=== PATIENT | female | born 1970 | race Caucasian/White ===

== ENCOUNTER 2019-11-20 09:12 | Emergency (ER) | payer BC, OTHER, SELFPAY ==
[2019-11-20 09:22] VITALS: BP 141/94; PULSE 98; RESP 16; TEMP 37.3; O2SAT 99
--- NOTE | 2019-11-20 09:31 | ED.URI ---
HPI - URI/Sore Throat General Chief Complaint: Upper Respiratory Infection Stated Complaint: sinus pressure/headache Time Seen by Provider: 11/20/19 09:38 Source: patient and family History of Present Illness HPI Narrative: PATIENT PRESENTS WITH 10 DAY HISTORY OF SINUS PRESSURE AND CONGESTION. PATIENT HAS BEEN TAKING ZYRTEC DAILY FOR SYMPTOMS. NO FEVER NO SHORTNESS OF BREATH AND NO CHEST PAIN. NO EAR PAIN AND NO SORE THROAT. MD elicited complaint: nasal congestion and sinus pain Related Data Home Medications Medication Instructions Recorded Confirmed amlodipine 5 mg PO DAILY 11/20/19 11/20/19 aspirin [Aspirin Low Dose] 81 mg PO DAILY 11/20/19 11/20/19 atorvastatin 80 mg PO DAILY 11/20/19 11/20/19 clopidogrel 75 mg PO DAILY 11/20/19 11/20/19 losartan 100 mg PO DAILY 11/20/19 11/20/19 trimethoprim 100 mg PO HS 11/20/19 11/20/19 Allergies Allergy/AdvReac Type Severity Reaction Status Date / Time ofloxacin Allergy Unknown Swelling Unverified 11/20/19 09:31 Review of Systems Review of Systems: All systems reviewed & are unremarkable except as noted in HPI and below ENT: Reports nasal congestion Comments: MAXILLARY SINUS PRESSURE AND TENDERNESS Respiratory: Respiratory: Reports no additional respiratory complaints Gastrointestinal: Gastrointestinal: Reports no additional gastrointestinal complaints Genitourinary: Genitourinary: Reports no additional female genitourinary complaints Musculoskeletal: Musculoskeletal: Reports no additional musculoskeletal complaints PMFSH Comments REVIEWED NURSES NOTES Exam Narrative: Exam Narrative: GENERAL: Well-appearing, well-nourished, and in no acute distress. HEAD: Normocephalic, atraumatic. EYES: PERRLA and EOMI. ENT: Nares edematous, rhinorrhea no epistaxis, mild maxillary facial pressure. Mucous membranes moist.TM's normal with dull light reflex, throat red, no lesions or tonsil swelling, post nasal drainage NECK: Supple.no lymphadenopathy CHEST: Clear to auscultation. No respiratory distress. HEART: Regular rate and rhythm. No murmur heard. Normal peripheral pulses. ABDOMEN: Soft, nontender, nondistended, normal active bowel sounds. EXTREMITIES: Normal range of motion. No edema. SKIN: Warm, dry, no rash. NEURO: No focal deficits. Alert and oriented x3. [place] Coma Scale Eye Opening: Spontaneous 4 [place] Coma Scale Motor: Obeys Commands 6 Jessie Coma Scale Verbal: Oriented 5 Jessie Coma Scale Total Course Vital Signs Vital signs: Vital Signs Temperature 37.3 C 11/20/19 09:22 Pulse Rate 98 11/20/19 09:22 Respiratory Rate 16 11/20/19 09:22 Blood Pressure 141/94 H 11/20/19 09:22 Pulse Oximetry 99 11/20/19 09:22 Temperature 37.3 C 11/20/19 09:22 Pulse Rate 98 11/20/19 09:22 Respiratory Rate 16 11/20/19 09:22 Blood Pressure 141/94 H 11/20/19 09:22 Pulse Oximetry 99 11/20/19 09:22 DISCUSSED ELEVATED BLOOD PRESSURE WITH PATIENT. PATIENT AGREEABLE TO FOLLOW UP WITH PCP FOR FURTHER EVALUATION AND TREATMENT. DENIES ANY S/S HTN MDM - URI/Sore Throat Differential Diagnosis Differential diagnosis: Likely upper respiratory infection, otitis media, viral infection and bronchitis Critical Care Time Critical Care Time Critical Care Time: No Discharge Plan Discharge Clinical Impression: Sinusitis Qualifiers: Sinusitis location: frontal Patient Disposition: Home, Self-Care Condition: Stable Instructions: Antibiotic Form Additional Instructions: ZYRTEC DAILY FLONASE DAILY INCREASE FLUIDS AND REST TYLENOL OR IBUPROFEN FOR PAIN AND DISCOMFORT FOLLOW UP WITH PCP IN 2-3 DAYS IF ANY NEW OR WORSENING OF CONDITION GO TO ER IMMEDIATELY Prescriptions: New amoxicillin 875 mg tablet 875 mg PO Q12H 5 Days Qty: 10 RF: 0 No Action atorvastatin 80 mg Tablet 80 mg PO DAILY RF: 0 clopidogrel 75 mg Tablet 75 mg PO DAILY RF: 0 amlodipine 5 mg Tablet 5 mg PO DAILY RF: 0 trimethoprim 100 mg Tablet
== END 2019-11-20 10:05 | disposition home or self-care (01) ==
PROVIDERS: Emergency Provider Nurse Practitioner Family
DX: J32.1 Chronic frontal sinusitis (principal)
CPT/HCPCS: 99213; G0463

== ENCOUNTER 2019-12-06 15:33 | Emergency (ER) | payer BC, OTHER, SELFPAY ==
--- NOTE | ~2019-12-06 | XR_ITS ---
EXAMINATION: XR chest 2V DATE: 12/06/2019 16:41 INDICATION: Cough. TECHNIQUE: Frontal and lateral views of the chest were obtained. COMPARISON: Chest 2 views 08/05/2017 FINDINGS: There is mild atelectasis in left lower lung zone. No pleural effusion or pneumothorax. The heart size is normal. IMPRESSION: 1. Mild atelectasis in left lower lung zone. Reviewed, dictated and finalized at location A.
[2019-12-06 15:40] VITALS: BP 120/80; PULSE 100; RESP 24; TEMP 36.8; O2SAT 94
--- NOTE | 2019-12-06 16:51 | ED.URI ---
HPI - URI/Sore Throat General Chief Complaint: Upper Respiratory Infection Stated Complaint: Shortness of breath/chest congestion Time Seen by Provider: 12/06/19 16:46 Source: patient and RN notes reviewed Mode of arrival: ambulatory Limitations: no limitations History of Present Illness HPI Narrative: 49 year old female presents to [facility] with complaints of cough, shortness of breath,and bilateral rib pain with no fevers. Patient states that she was seen here at [facility] on the of this month and treated for sinusitis with antibiotics and completed medication. Last Monday she developed some post nasal drainage, fatigue and body aches. She states that on Monday and Monday she had nausea, vomiting and diarrhea and had fevers up to 101F with last know fevers on Monday above 100F. Patient states that she called [facility] for COVID screening and was told she didn't meet criteria since her initial symptoms were on the .Patient has decreased lung sound on auscultation, some tachypnea noted, no accessory muscle use noted with SAO2 94% on room air. Patient states bilateral rib pain from coughing and also states some right flank pain also she rates as 5/10. Patient states last travel was in October 12- [place] to [facility] and [facility] on cruise. MD elicited complaint: cough and other (shortness of breath, rib pain, last known fever November) Pertinent past history: sinusitis and other (cardiac history, autoimmune disease) Onset (ago): week(s) (initial illness on the treated for sinusitis, on flu like symptoms,present complaints 2 days duration) Consistency: progressively worsening Severity: moderate Pain scale (0-10): 5 Description of mucous: clear Able to tolerate fluids by mouth: Yes Exacerbating factors: exertion and deep breaths Relieving factors: nothing Associated symptoms: rhinorrhea, cough, shortness of breath and other (rib and right flank pain) Treatments prior to arrival: other (Zyrte, last fever reducers over weekend through ) Related Data Home Medications Medication Instructions Recorded Confirmed amlodipine 5 mg PO DAILY 11/20/19 12/06/19 aspirin [Aspirin Low Dose] 81 mg PO DAILY 11/20/19 12/06/19 atorvastatin 80 mg PO DAILY 11/20/19 12/06/19 clopidogrel 75 mg PO DAILY 11/20/19 12/06/19 losartan 100 mg PO DAILY 11/20/19 12/06/19 trimethoprim 100 mg PO HS 11/20/19 12/06/19 Allergies Allergy/AdvReac Type Severity Reaction Status Date / Time ofloxacin Allergy Unknown Swelling Verified 12/06/19 15:59 Review of Systems Review of Systems: Narrative: CONSTITUTIONAL: Denies fever, chills, or sweats since EYES: Denies visual changes, redness, or discharge. ENT: Positive rhinorrhea, congestion, no sore throat, or otalgia. CARDIOVASCULAR: Denies chest pain, palpitations, or edema,states bilateral rib pain RESPIRATORY:Positive cough and dyspnea. GASTROINTESTINAL: Denies abdominal pain, nausea, vomiting, or diarrhea. GENITOURINARY: Denies dysuria or hematuria. SKIN: Denies rash or itching. MUSCULOSKELETAL: Denies back pain, joint pain, or myalgia. NEUROLOGIC: Denies headache, numbness, or weakness. PSYCHIATRIC: Denies anxiety or depression. All systems reviewed & are unremarkable except as noted in HPI and below PMFSH Past Medical History Medical History (Updated 12/07/19 @ 21:09 by Tuyet Williamson NP) Autoimmune disease Hyperlipidemia Hypertension Left renal atrophy Myocardial infarction Surgical History Surgical History (Updated 12/07/19 @ 20:47 by Tuyet Williamson NP) H/O tubal ligation H/O: hysterectomy History of appendectomy History of bladder surgery History of cardiac catheterization History of heart artery stent Social History Social History (Updated 12/07/19 @ 20:48 by Tuyet Williamson NP) Smoking status: Never smoker Living arrangements: with family Occupation/Education: other Additional occupation/education comments: works in [employer]
== END 2019-12-06 18:05 | disposition home or self-care (01) ==
PROVIDERS: Emergency Provider Registered Nurse
DX: R05 Cough (principal); R07.81 Pleurodynia; J06.9 Acute upper respiratory infection, unspecified; E78.5 Hyperlipidemia, unspecified; I10 Essential (primary) hypertension; I25.2 Old myocardial infarction; Z95.5 Presence of coronary angioplasty implant and graft; D89.9 Disorder involving the immune mechanism, unspecified
CPT/HCPCS: 71046; 87804; 99213; G0463

== ENCOUNTER 2020-10-05 16:19 | Emergency (ER) | payer BC, OTHER, SELFPAY ==
--- NOTE | ~2020-10-05 | XR_ITS ---
XR chest 1V portable DATE: 10/05/2020 17:25 INDICATION: Shortness of breath. Covid-positive. History of myocardial infarction, hypertension. TECHNIQUE: Portable upright AP chest on 10/05/2020 at 1718 hours COMPARISON: 12/05/2021 view chest FINDINGS: Heart size is within normal range. No hilar or mediastinal enlargement. No pulmonary infilt rate or consolidation, pleural effusion or pulmonary vascular congestion or pneumothorax. Degenerative spurring of the thoracic spine. IMPRESSION: No active cardiopulmonary disease Reviewed, dictated and finalized at location A. OGENATION OPERATOR
[2020-10-05 16:20] VITALS: BP 148/76; PULSE 88; RESP 18; TEMP 36.4; O2SAT 97
--- NOTE | 2020-10-05 16:37 | ECG_ITS ---
Measurements Intervals [place] Rate: 83 P: 23 MN: 157 QRS: 30 QRSD: 84 T: 44 QT: 361 QTc: 424 Interpretive Statements SINUS RHYTHM SUPRAVENTRICULAR TRIGEMINY BORDERLINE R WAVE PROGRESSION, ANTERIOR LEADS ABNORMAL ECG Electronically Signed On 10-05-2020 19:28:02 MARKET RESEARCH COORDINATOR by Sourav Rausch D.O.
[2020-10-05 17:07] VITALS: BP 155/94; PULSE 85; RESP 16; O2SAT 97
[2020-10-05 17:50] LABS: Basophils Percent Auto 0.2 % (0.2-1.2); Eosinophils Absolute Auto 0.2 K/mm3 (0-0.3); Eosinophils Percent Auto 2.7 % (0-4.4); Hematocrit 42.4 % (37.0-47.0); Hemoglobin 14.3 g/dL (12.0-15.0); Immature Granulocyte Absolute 0.02 K/mm3 (0.00-0.031); Immature Granulocyte Percent A 0.3 % (0-0.5); Lymphocytes Absolute Auto 2.16 K/mm3 (0.9-3.2); Mean Corpuscular HGB Conc 33.7 g/dl (32-36); Mean Corpuscular Hemoglobin 30.5 pg (26-34); Mean Corpuscular Volume 90.4 fl (80-100); Mean Platelet Volume 10.8 fl (7.4-10.4); Monocytes Absolute Auto 0.3 K/mm3 (0.1-0.6); Monocytes Percent Auto 5.8 % (2.6-8.5); Neutrophils Absolute Auto 3.1 K/mm3 (1.3-6.7); Platelet Count Result 157 k/mm3 (150-375); Red Blood Count 4.69 M/mm3 (4.2-5.4); Red Cell Distribution Width 12.3 % (11.5-14.5); White Blood Count 5.8 K/mm3 (4.5-10.0)
[2020-10-05 17:59] LABS: INR 0.8; Partial Thromboplastin Time 27.2 SECONDS (22.3-36.8)
[2020-10-05 18:00] LABS: Lactic Acid Reflex 0.8 mmol/L (0.7-2.1)
[2020-10-05 18:04] LABS: Alanine Aminotransferase 53 U/L (4-35); Albumin Level 4.3 g/dL (3.5-5.1); Alkaline Phosphatase 123 U/L (38-126); Anion Gap 9 mmol/L (8-16); Aspartate Amino Transferase 29 U/L (14-36); Bilirubin,Total 0.4 mg/dL (0.2-1.3); Blood Urea Nitrogen 22 mg/dL (7-17); CRP 0.6 mg/dL (<1.0); Calcium 10.1 mg/dL (8.4-10.2); Carbon Dioxide 27 mmol/L (22-30); Chloride 105 mmol/L (98-107); Estimated CRCL calculation 44 ml/min; Estimated Glomerular Filt Rate 44; Glucose 116 mg/dL (65-105); Potassium 4.6 mmol/L (3.4-5.0); Sodium 141 mmol/L (137-145)
--- NOTE | 2020-10-05 18:07 | ED.GENADULT ---
HPI - General Adult General Chief complaint: Upper Respiratory Infection Stated complaint: COVID +, SOB Time Seen by Provider: 10/05/20 16:36 Source: patient Mode of arrival: ambulatory Limitations: no limitations History of Present Illness HPI narrative: Patient is a 49-year-old female who presents with upper respiratory symptoms with pleuritic chest pain and back pain fever chills diarrhea headache congestion cough that have been present since patient's Covid test came back today positive patient denies vomiting patient was given some cough medicine by primary care and has been taking [id number] medications with minimal improvement patient on arrival to emergency department is in no distress does not appear uncomfortable Related Data Home Medications Medication Instructions Recorded Confirmed amlodipine 5 mg PO DAILY 11/20/19 04/16/20 aspirin [Aspirin Low Dose] 81 mg PO DAILY 11/20/19 04/16/20 atorvastatin 80 mg PO DAILY 11/20/19 04/16/20 losartan 100 mg PO DAILY 11/20/19 04/16/20 trimethoprim 100 mg PO HS 11/20/19 04/16/20 Allergies Allergy/AdvReac Type Severity Reaction Status Date / Time ofloxacin Allergy Unknown Swelling Verified 10/01/20 15:49 [facility] Past Medical History Medical History (Updated 10/05/20 @ 19:44 by Naresh Narvaez PA-C) Autoimmune disease Hyperlipidemia Hypertension Left renal atrophy Myocardial infarction Surgical History Surgical History H/O tubal ligation H/O: hysterectomy History of appendectomy History of bladder surgery History of cardiac catheterization History of heart artery stent Social History Social History Smoking status: Never smoker Alcohol intake: current Substance use: never Additional occupation/education comments: works in [employer] Gender identity (if verbalized by the patient): Female Exam Narrative: Exam Narrative: GENERAL: Well-appearing, well-nourished, and in no acute distress. HEAD: Normocephalic, atraumatic. EYES: PERRLA and EOMI. ENT: Nares clear, no rhinorrhea or epistaxis. Mucous membranes moist. CHEST: Clear to auscultation. No respiratory distress. No wheezes rales or rhonchi HEART: Regular rate and rhythm. No murmur heard. EXTREMITIES: Normal range of motion. No edema. SKIN: Warm, dry, no rash. NEURO: No focal deficits. Alert and oriented x3. PSYCH: Normal mood and affect. Course Course Emergency Course: Patient is a 49-year-old female who presents with COVID-19 positive symptoms patient with slight dehydration was hydrated in the emergency department no pneumonia no hypoxemia no other high risk changes in the evaluation or findings will be discharged home with reasons to return will purchase a home oximeter and given strict reasons to return Vital Signs Vital signs: Vital Signs Temperature 97.6 F 10/05/20 16:20 Pulse Rate 88 10/05/20 16:20 Respiratory Rate 18 10/05/20 16:20 Blood Pressure 148/76 H 10/05/20 16:20 Pulse Oximetry 97 10/05/20 16:20 Temperature 97.6 F 10/05/20 16:20 Pulse Rate 85 10/05/20 17:07 Respiratory Rate 16 10/05/20 17:07 Blood Pressure 155/94 H 10/05/20 17:07 Pulse Oximetry 97 10/05/20 17:07 Medical Decision Making [facility] Narrative Medical decision making narrative: Patient with COVID-19 will be discharged home with plans for hydration and indications to return no hypoxemia no pneumonia felt appropriate for outpatient reevaluation hydrated in the emergency department Vital Signs Vital Signs: Vital Signs Temperature 97.6 F 10/05/20 16:20 Pulse Rate 88 10/05/20 16:20 Respiratory Rate 18 10/05/20 16:20 Blood Pressure 148/76 H 10/05/20 16:20 Pulse Oximetry 97 10/05/20 16:20 Temperature 97.6 F 10/05/20 16:20 Pulse Rate 85 10/05/20 17:07 Respiratory Rate 16 10/05/20 17:07 Blood Pressure 155/94 H 10/05/20 17:07 Pulse Oxi
[2020-10-05 18:13] LABS: Troponin I < 0.012 ng/mL (0.000-0.034)
[2020-10-05 18:19] LABS: D Dimer 0.27 ug/mL (<0.48)
[2020-10-05] MEDS: ONDANSETRON INJ 4 MG/2 ML VIAL IV PUSH (18:25)
[2020-10-05] MEDS: FAMOTIDINE 20 MG/2 ML VIAL IV PUSH (18:26)
[2020-10-05] MEDS: DEXAMETHASONE SOD PHOS INJ 4 MG/ML VIAL 6 MG IV PUSH (18:26)
[2020-10-05] MEDS: SODIUM CHLORIDE 0.9% IV 1,000 ML 999 ML IV CONT (18:26)
[2020-10-05 19:50] VITALS: BP 140/80; PULSE 80; RESP 17; O2SAT 98
== END 2020-10-05 19:50 | disposition home or self-care (01) ==
PROVIDERS: Emergency Medicine Emergency Medical Services; Emergency Provider Emergency Medicine; PCP Family Medicine
DX: U07.1 COVID-19 (principal); E78.5 Hyperlipidemia, unspecified; N26.1 Atrophy of kidney (terminal); I25.2 Old myocardial infarction; M35.9 Systemic involvement of connective tissue, unspecified; Z95.5 Presence of coronary angioplasty implant and graft; R00.8 Other abnormalities of heart beat; R94.31 Abnormal electrocardiogram [ECG] [EKG]
CPT/HCPCS: 36415; 71045; 80053; 83605; 84484; 85025; 85380; 85610; 85730; 86140; 93005; 96361; 96365; 96375; 99284; J0131; J1100; J2405; J7030

== ENCOUNTER 2021-01-07 09:16 | Outpatient (CLI) | payer BC, OTHER, SELFPAY ==
--- NOTE | ~2021-01-07 | US_ITS ---
EXAMINATION: US pelvic complete DATE: 01/07/2021 09:51 INDICATION: Ovarian cyst Comparison:No prior studies for comparison. TECHNIQUE: Multiple transabdominal sonographic images of the pelvis performed. FINDINGS: The uterus is surgically absent. The right ovary measures 4.4 x 2.8 x 3 cm and the left ovary measures 7.5 x 5.6 x 6.5 cm.. There are bilateral ovarian cysts with maximum dimensions measuring 2.4 cm on the right and 5.2 cm on the left. There is no free fluid in the pelvis. There are no abnormal masses seen on either side. IMPRESSION: 1. Bilateral ovarian cysts, largest in the left ovary measuring 5.2 cm. Reviewed, dictated and finalized at location B.
== END 2021-01-07 09:17 | disposition home or self-care (01) ==
PROVIDERS: PCP Family Medicine; Visit Provider Family Medicine
DX: N83.201 Unspecified ovarian cyst, right side (principal); N83.202 Unspecified ovarian cyst, left side
CPT/HCPCS: 76856

== ENCOUNTER 2021-04-08 10:03 | Outpatient (CLI) | payer BC, OTHER, SELFPAY ==
--- NOTE | 2021-04-08 18:18 | WPDSIXMINUTE ---
Six Minute Walk Procedure Procedure Performed Pulmonary Stress Test (6 min walk) Six Minute Walk This is a 6 minutes walk test. The test was performed and interpreted in accordance with the 2014 ERS/ATS task force guidelines. Findings: The patient's resting room air oxygen saturation measured by pulse oximetry was 97% and her heart rate was 96 bpm. Patient ambulated for 198 meters and oxygen saturation remained 94 to 96%. Heart rate at the end of the study was 100 bpm. The patient did not qualify for supplemental oxygen at rest or with ambulation. There are no prior studies for comparison.
--- NOTE | 2021-04-08 18:19 | WPDPFTINT ---
PFT Procedure Performed PFT Procedure Performed Spirometry with Pre/Post Bronchodilator Plethysmography (Lung Vol) Diffusing Cap (DLCO) Flow Vol Loop PFT Interpretation This is a pulmonary function test with pre and post-bronchodilator spirometry, plethysmography and diffusing capacity. The test was performed and results interpreted in accordance with the 2019 and 2005 ATS/ERS Task Force guidelines respectively using the Global Lung Function Initiative-2012 reference equations. Patient demonstrated good effort and cooperation. Reproducibility criteria were met. The quality of the pre bronchodilator spirometry maneuver was Grade A and post bronchodilator spirometry maneuver was Grade A. Findings: Spirometry: The contour of the inspiratory and expiratory flow tracing are normal. The pre bronchodilator FVC is 2.37 L, 75% predicted. The pre bronchodilator FEV1 is 2.01 L, 79% predicted. The FEV1: FVC ratio was 85%. The post bronchodilator FVC is 2.21 L, representing a 7% decrease. The post bronchodilator FEV1 is 1.88 L, representing a 7% decrease. Plethysmography: The total lung capacity is 3.55 L, 77% predicted. The functional residual capacity is 1.39 L, 55% predicted. The residual volume is 1.16 L, 73% predicted. Diffusing capacity: The absolute diffusion capacity is 16.4, 75% predicted. The diffusing capacity corrected for alveolar volume is 5.44, 114% predicted. Impression: The spirometry is normal without evidence of an obstructive abnormality. The FVC is mildly decreased without evidence of obstruction or restriction. This is an abnormal but nonspecific finding. The functional residual capacity is decreased with a normal total lung capacity. This is an abnormal but nonspecific lung volume pattern. The diffusing capacity is normal. There are no prior studies for comparison
== END 2021-04-08 10:04 | disposition home or self-care (01) ==
LOC: ANHPFT 10:05
PROVIDERS: PCP Family Medicine; Visit Provider Internal Medicine Critical Care Medicine
DX: R06.00 Dyspnea, unspecified (principal); B94.8 Sequelae of other specified infectious and parasitic diseases
CPT/HCPCS: 94060; 94618; 94726; 94729

== ENCOUNTER 2021-06-18 08:04 | Outpatient (CLI) | payer BC, OTHER, SELFPAY ==
--- NOTE | 2021-06-30 17:50 | WPDHOMESLEEP ---
Sleep Study - Home Unattended Date of Study: 06/18/21 <Nely Underwood DO - Last Filed: 06/30/21 18:13> Ordering Provider: Susan Harmon MD <Nely Underwood DO - Last Filed: 06/30/21 18:13> Interpreting Provider: Nely Underwood DO <Nely Underwood DO - Last Filed: 06/30/21 18:13> Home Sleep Study Type: Apnea Link Air <Nely Underwood DO - Last Filed: 06/30/21 18:13> Height: 1.55 m <Nely Underwood DO - Last Filed: 06/30/21 18:13> Weight: 77.111 kg <Nely Underwood DO - Last Filed: 06/30/21 18:13> Body Mass Index: 32.1 <Nely Underwood DO - Last Filed: 06/30/21 18:13> Neck Circumference (inches): 15.50 <Nely Underwood DO - Last Filed: 06/30/21 18:13> [place]: 11 <Nely Underwood DO - Last Filed: 06/30/21 18:13> Reason for Sleep Study Sleep-maintenance insomnia. <Nely Underwood DO - Last Filed: 06/30/21 18:13> Sleep History The patient is a 50-year-old female with hypertension, coronary artery disease, hypothyroidism, GERD and hyperlipidemia that had a sleep study ordered by from her for increased daytime sleepiness, unrefreshing sleep and snoring. The patient denies awakening from sleep short of breath. She often awakens at night with heartburn, belching or cough. She rarely snores and it is never loud enough that others complain. She rarely has trouble sleeping when she has a cold. She denies waking up gasping for air throughout the night. She denies having breathing problems at night observed by others. She frequently sweats excessively at night. She denies heart palpitations throughout the night. She frequently falls asleep during the day but never while driving. She often has trouble at work due to sleepiness. She denies sleep paralysis and cataplexy. She rarely experiences vivid dreamlike scenes upon awakening or falling asleep. She rarely has nightmares. She never feels sad or depressed and is rarely anxious. She frequently has muscular tension. She often notices parts of her body jerk. She denies kicking during the night. She denies crawling and aching feelings in her legs as well as leg pain. She rarely grinds her teeth during sleep and never awakens with jaw pain. She is often bothered by pain during the day and is rarely awakened by pain during the night. He often wakes up with sore and achy muscles. The patient goes to bed any time from 11:00 p.m. to 1:00 a.m. on both the weekdays and weekends. It takes her about 10 minutes to fall asleep. She wakes up once throughout the night usually between 4-6 a.m.. He can take her a few hours to fall back asleep. When she wakes up she will either lay there awake or she will get up for the day. She typically wakes up between 9 in 10:00 a.m. on the weekdays and 8:00 a.m. to 10:00 a.m. on the weekends. She currently lives with her , 2 adult children and her 1 grand child. She does not consume any caffeinated beverages within 2 hours of going to sleep. She does not engage in physical exercise before bedtime. She will read and watch television before falling asleep. She does take naps in the afternoon or the evening but there on refreshing. She drinks 1-2 caffeinated beverages per day. She denies tobacco, alcohol and recreational drug use. <Nely Underwood DO - Last Filed: 06/30/21 18:13> [facility] Past Medical History Medical History: Medical History (Updated 06/30/21 @ 18:03 by Nely Underwood DO) Autoimmune disease Hyperlipidemia Hypertension Left renal atrophy Myocardial infarction <Nely Underwood DO - Last Filed: 06/30/21 18:13> Surgical History Surgical History: Surgical History H/O tubal ligation H/O: hysterectomy History of appendectomy History of bladder surgery History of cardiac catheterization History of heart artery stent <Nely
[2021-06-30 18:13] VITALS: BMI 32.1
== END 2021-06-21 09:50 | disposition home or self-care (01) ==
LOC: ANHCSM 08:06
PROVIDERS: PCP Family Medicine; Visit Provider Internal Medicine Critical Care Medicine
DX: G47.10 Hypersomnia, unspecified (principal); G47.33 Obstructive sleep apnea (adult) (pediatric)
CPT/HCPCS: 95806

== ENCOUNTER → 2021-06-28 08:51 | Outpatient (CLI) | payer BC, OTHER, SELFPAY ==
--- NOTE | ~2021-06-28 | CT_ITS ---
EXAMINATION: CT chest high resolution wo md DATE: 06/28/2021 09:16 INDICATION: Dyspnea. TECHNIQUE: Computed tomography (CT) of the chest was performed without intravenous contrast. The dose -length product was 289.43 mGy-cm. Automated exposure control and iterative reconstruction technique were employed. COMPARISON: Chest dated 10/05/2020 FINDINGS: No thoracic lymphadenopathy. Heart size normal. No significant pleural or pericardial effus ion. There is fatty infiltration of the liver. No focal airspace consolidation. No endobronchial lesi on. No suspicious pulmonary nodules or masses. No pneumothorax. Mild thoracic spondylosis. IMPRESSION: 1. No acute cardiopulmonary disease. 2: Fatty infiltration of the liver. Reviewed, dictated and finalized at location B.
== END ==
PROVIDERS: PCP Family Medicine; Visit Provider Internal Medicine Critical Care Medicine
DX: R06.00 Dyspnea, unspecified (principal); K76.0 Fatty (change of) liver, not elsewhere classified
CPT/HCPCS: 71250

== ENCOUNTER 2021-06-29 10:58 | Outpatient (CLI) | payer BC, OTHER, SELFPAY ==
[2021-06-29 19:54] LABS: Alanine Aminotransferase 25 U/L (4-35); Albumin Level 4.5 g/dL (3.5-5.1); Alkaline Phosphatase 78 U/L (38-126); Anion Gap 13 mmol/L (8-16); Aspartate Amino Transferase 34 U/L (14-36); Bilirubin,Total 0.7 mg/dL (0.2-1.3); Blood Urea Nitrogen 17 mg/dL (7-17); Calcium 9.7 mg/dL (8.4-10.2); Carbon Dioxide 26 mmol/L (22-30); Chloride 101 mmol/L (98-107); Estimated Glomerular Filt Rate 44; Glucose 143 mg/dL (65-110); Potassium 4.1 mmol/L (3.4-5.0); Sodium 140 mmol/L (137-145)
[2021-06-29 20:07] LABS: Free T4 Free Thyroxine 1.67 ng/mL (0.78-2.19)
[2021-06-29 20:48] LABS: Hemoglobin A1C 7.7 % (<5.7)
[2021-07-02 06:52] LABS: Progesterone 52.4 ng/mL (***); Triiodothyronine T3 Free 2.4 pg/mL (2.3-4.2)
== END 2021-06-29 10:59 | disposition home or self-care (01) ==
LOC: ANHBWCLAB 11:02
PROVIDERS: PCP Family Medicine; Visit Provider Family Medicine
DX: E06.9 Thyroiditis, unspecified (principal); E78.5 Hyperlipidemia, unspecified; I25.10 Atherosclerotic heart disease of native coronary artery without angina pectoris; K76.0 Fatty (change of) liver, not elsewhere classified; I12.9 Hypertensive chronic kidney disease with stage 1 through stage 4 chronic kidney disease, or unspecified chronic kidney disease; N18.9 Chronic kidney disease, unspecified; E03.9 Hypothyroidism, unspecified
CPT/HCPCS: 36415; 80053; 82607; 83036; 84144; 84439; 84443; 84481

== ENCOUNTER 2021-07-07 12:37 | Outpatient (CLI) | payer BC, OTHER, SELFPAY ==
[2021-07-07 18:39] LABS: Hemoglobin A1C 7.7 % (<5.7)
== END 2021-07-07 12:38 | disposition home or self-care (01) ==
LOC: ANHBWCLAB 12:40
PROVIDERS: PCP Family Medicine; Visit Provider Family Medicine
DX: R73.09 Other abnormal glucose (principal)
CPT/HCPCS: 36415; 83036

== ENCOUNTER 2021-11-04 09:21 | Outpatient (CLI) | payer OTHER, SELFPAY ==
[2021-11-04 19:00] LABS: Hemoglobin A1C 9.8 % (<5.7)
[2021-11-04 19:27] LABS: Creatinine Urine 78.9 mg/dL
[2021-11-04 19:32] LABS: MALB Creatinine Ratio 18.1 mg/g (0-30); Microalbumin Urine Random 14.3 mg/L (0-16.7)
[2021-11-07 05:32] LABS: Progesterone 12.1 ng/mL (***)
== END 2021-11-04 09:22 | disposition home or self-care (01) ==
LOC: ANHBWCLAB 09:24
PROVIDERS: PCP Family Medicine; Visit Provider Family Medicine
DX: Z00.00 Encounter for general adult medical examination without abnormal findings (principal); E11.65 Type 2 diabetes mellitus with hyperglycemia; K76.0 Fatty (change of) liver, not elsewhere classified
CPT/HCPCS: 36415; 82043; 83036; 84144

== ENCOUNTER 2022-02-02 13:49 | Outpatient (CLI) | payer OTHER, SELFPAY ==
--- NOTE | ~2022-02-02 | XR_ITS ---
EXAMINATION: [id number] DATE: 02/02/2022 14:09 INDICATION: Pain and swelling at the left great toe TECHNIQUE: 1. Dorsoplantar, two oblique and lateral views of the left foot were obtained. COMPARISON: None. FINDINGS: Normal alignment at the left foot. No fracture. Joint spaces are normal. No erosions or periosteal re action. Soft tissues are unremarkable. IMPRESSION: 1. Negative left foot radiographs. Reviewed, dictated and finalized at location B.
[2022-02-02 19:02] LABS: Hematocrit 41.7 % (37.0-47.0); Mean Corpuscular HGB Conc 31.2 g/dl (32-36); Mean Corpuscular Hemoglobin 28.6 pg (26-34); Mean Corpuscular Volume 91.6 fl (80-100); Platelet Count Result 307 k/mm3 (150-375); Red Blood Count 4.55 M/mm3 (4.2-5.4); Red Cell Distribution Width 13.5 % (11.5-14.5); White Blood Count 10.8 K/mm3 (4.5-10.0)
[2022-02-02 19:38] LABS: Erythrocyte Sedimentation Rate 11 mm/hr (0-20)
== END 2022-02-02 13:50 | disposition home or self-care (01) ==
PROVIDERS: PCP Family Medicine; Visit Provider Family Medicine
DX: L53.9 Erythematous condition, unspecified (principal); R60.9 Edema, unspecified; M79.671 Pain in right foot; M10.9 Gout, unspecified
CPT/HCPCS: 36415; 73630; 85027; 85652

== ENCOUNTER 2022-08-09 07:47 | Outpatient (CLI) | payer OTHER, SELFPAY ==
[2022-08-09 18:47] LABS: Basophils Percent Auto 0.6 % (0.2-1.2); Eosinophils Absolute Auto 0.1 K/mm3 (0-0.3); Eosinophils Percent Auto 1.9 % (0-4.4); Hematocrit 43.2 % (37.0-47.0); Hemoglobin 13.5 g/dL (12.0-15.0); Immature Granulocyte Absolute 0.01 K/mm3 (0.00-0.031); Immature Granulocyte Percent A 0.1 % (0-0.5); Lymphocytes Absolute Auto 2.48 K/mm3 (0.9-3.2); Lymphocytes Percent Auto 35.7 % (18.3-44.2); Mean Corpuscular HGB Conc 31.3 g/dl (32-36); Mean Corpuscular Hemoglobin 28.5 pg (26-34); Mean Corpuscular Volume 91.1 fl (80-100); Mean Platelet Volume 12.7 fl (7.4-10.4); Monocytes Absolute Auto 0.5 K/mm3 (0.1-0.6); Monocytes Percent Auto 6.8 % (2.6-8.5); Neutrophils Absolute Auto 3.8 K/mm3 (1.3-6.7); Neutrophils Percent Auto 54.9 % (45.5-73.1); Platelet Count Result 244 k/mm3 (150-375); Red Blood Count 4.74 M/mm3 (4.2-5.4); Red Cell Distribution Width 13.6 % (11.5-14.5)
[2022-08-09 18:53] LABS: Alanine Aminotransferase 75 U/L (6-35); Albumin Level 4.5 g/dL (3.5-5.1); Alkaline Phosphatase 59 U/L (38-126); Anion Gap 11 mmol/L (8-16); Aspartate Amino Transferase 92 U/L (14-36); Bilirubin,Total 0.5 mg/dL (0.2-1.3); Blood Urea Nitrogen 18 mg/dL (7-17); Calcium 9.9 mg/dL (8.4-10.2); Carbon Dioxide 25 mmol/L (22-30); Chloride 104 mmol/L (98-107); Estimated Glomerular Filt Rate 40; Glucose 127 mg/dL (65-110); Potassium 4.3 mmol/L (3.4-5.0); Sodium 140 mmol/L (137-145)
[2022-08-09 20:53] LABS: Hemoglobin A1C 7.8 % (<5.7)
[2022-08-10 05:54] LABS: Total Triiodothyronine (T3) 1.22 NG/ML (0.97-1.69)
[2022-08-12 03:54] LABS: FSH 78.8 mIU/mL (***); LH 60.2 mIU/mL (***); Progesterone 3.9 ng/mL (***)
[2022-08-13 14:19] LABS: Testosterone Free 1.4 pg/mL (0.1-6.4); Testosterone Total 18 ng/dL (2-45)
[2022-08-16 15:12] LABS: Estrogen 169.7 pg/mL
== END 2022-08-09 07:48 | disposition home or self-care (01) ==
LOC: ANHBWCLAB 07:48
PROVIDERS: PCP Family Medicine; Visit Provider Family Medicine
DX: R68.82 Decreased libido (principal); E06.9 Thyroiditis, unspecified; E11.9 Type 2 diabetes mellitus without complications; R07.81 Pleurodynia; R53.83 Other fatigue
CPT/HCPCS: 36415; 80053; 82672; 83001; 83002; 83036; 84144; 84402; 84403; 84439; 84443; 84480; 85025

== ENCOUNTER 2022-09-02 00:24 | Day surgery (SDC) | payer OTHER, SELFPAY ==
[2022-08-23 15:07] VITALS: BMI 29.1
--- NOTE | 2022-09-01 12:55 | PM.HPGS ---
History of Present Illness History of Present Illness Consent: Risks, benefits, and alternatives have been discussed and questions answered. Patient agrees to proceed with procedure. Chief complaint: neoplasm screening Narrative: Lilly Salmeron is a 51 year old female referred for colon cancer screening. Review of Systems Review of Systems: All systems reviewed & are unremarkable except as noted in HPI and below PMFSH Past Medical History Medical History Autoimmune disease Hyperlipidemia Hypertension Left renal atrophy Myocardial infarction Surgical History Surgical History H/O tubal ligation H/O: hysterectomy History of appendectomy History of bladder surgery History of cardiac catheterization History of heart artery stent Social History Social History Smoking status: Never smoker Alcohol intake: never Substance use: never Substance use type: does not use Lack of Transportation: No Concerned About Future Housing: No Difficulty Paying Gas/Electric Bills: No Difficulty Paying for Meds: No Currently Unemployed: No Education: Associate Degree Difficulty w/ Childcare or Family Care: No Living arrangements: with family Additional occupation/education comments: works in [employer] Gender identity (if verbalized by the patient): Female Spiritual care concerns: No Meds Home Medications and Allergies Home Medications Medication Instructions Recorded Confirmed Type aspirin 81 mg tablet,delayed 81 mg PO DAILY 11/20/19 08/23/22 History release (Gloria Low Dose Aspirin) carvedilol 3.125 mg tablet 3.125 mg PO Q12H 12/08/20 08/23/22 History nitroglycerin 0.4 mg sublingual 0.4 mg sublingual Q5M PRN Pain 12/08/20 08/23/22 History tablet furosemide 20 mg tablet 20 mg PO QAM 02/18/21 08/23/22 History multivit with 1 tablet PO DAILY 02/18/21 08/23/22 History [id number]-IT-lutein 8 mg iron-400 mcg-300 mcg tablet (Centrum Silver Women) fenofibrate nanocrystallized 145 145 mg PO DAILY 06/29/21 08/23/22 History mg tablet atorvastatin 80 mg tablet 80 mg PO DAILY #90 tabs 09/06/21 08/23/22 Rx blood sugar diagnostic (Blood #50 ea 11/11/21 11/11/21 Rx Glucose Test strips) blood-glucose meter (Blood Glucose #1 ea 01/28/22 Rx Monitoring kit) progesterone micronized 100 mg 100 mg PO QAM 60 days #60 caps 04/06/22 08/23/22 Rx capsule icosapent ethyl 1 gram capsule 2 g PO BID #120 caps 05/05/22 08/23/22 Rx (Vascepa) lisinopril 2.5 mg tablet 2.5 mg PO DAILY #90 tabs 05/05/22 08/23/22 Rx levothyroxine 25 mcg tablet 25 mcg PO DAILY #90 tabs 07/25/22 08/23/22 Rx (Synthroid) linaclotide 72 mcg capsule 72 mcg PO DAILY #90 caps 08/08/22 08/23/22 Rx (Linzess) semaglutide 0.25 mg or 0.5 mg (2 1 mg subcut WEEKLY 08/23/22 08/23/22 History mg/1.5 mL) subcutaneous pen injector (Ozempic) trimethoprim 1 tab-cap PO DAILY 08/23/22 08/23/22 History Allergies Allergy/AdvReac Type Severity Reaction Status Date / Time ofloxacin Allergy Unknown Swelling Verified 09/02/22 08:02 venlafaxine Allergy headaches Verified 09/02/22 08:02 Latex, Natural Rubber AdvReac Mild rash Verified 09/02/22 08:02 Exam Const: General: alert Orientation/consciousness: patient oriented x3 Resp: Auscultation: clear to auscultation bilaterally Cardio: Rhythm: regular rhythm GI: GI Palp: Yes Soft to palpation and No Tenderness to palpation present (GI) Neuro: General: patient oriented x3 Assessment and Plan Assessment and plan (1) Colon cancer screening: Code(s): Z12.11 - Encounter for screening for malignant neoplasm of colon Status: Acute Assessment and Plan: Colonoscopy with possible biopsy or polypectomy or cautery or injection of substances.
[2022-09-02 08:04] VITALS: BP 109/88; PULSE 85; RESP 20; TEMP 36.3; O2SAT 96; BMI 28.4
[2022-09-02] MEDS: LACTATED RINGERS 1,000 ML 150 ML IV CONT (08:13)
[2022-09-02 08:14] LABS: Glucose Point of Care 117 mg/dl (65-105)
--- NOTE | 2022-09-02 08:23 | WPDANESEPPF ---
Anes - Initial Pre Proc Eval Procedure: Operation Date: 09/02/22 09:30 Proposed Procedures p Screening Colonoscopy - Yousuf Thacker MD Date/Time: 09/02/22 08:23 Surgeon: Yousuf Thacker MD Pre Op Diagnosis: neoplasm screening Patient Data Age: 51 Gender: F Height: 1.55 m Weight: 68.2 kg Last Vital Signs Temp 36.3 C L 09/02/22 08:04 Pulse 85 09/02/22 08:04 Resp 20 09/02/22 08:04 BP 109/88 09/02/22 08:04 Pulse Ox 96 09/02/22 08:04 O2 Del Method Room Air 09/02/22 08:04 Allergies Allergy/AdvReac Type Severity Reaction Status Date / Time ofloxacin Allergy Unknown Swelling Verified 09/02/22 08:02 venlafaxine Allergy headaches Verified 09/02/22 08:02 Latex, Natural Rubber AdvReac Mild rash Verified 09/02/22 08:02 Home Medications Medication Instructions Recorded Confirmed Type aspirin 81 mg tablet,delayed 81 mg PO DAILY 11/20/19 08/23/22 History release (Gloria Low Dose Aspirin) carvedilol 3.125 mg tablet 3.125 mg PO Q12H 12/08/20 08/23/22 History nitroglycerin 0.4 mg sublingual 0.4 mg sublingual Q5M PRN Pain 12/08/20 08/23/22 History tablet furosemide 20 mg tablet 20 mg PO QAM 02/18/21 08/23/22 History multivit with 1 tablet PO DAILY 02/18/21 08/23/22 History ddgtymez-hnmu-JT-lutein 8 mg iron-400 mcg-300 mcg tablet (Centrum Silver Women) fenofibrate nanocrystallized 145 145 mg PO DAILY 06/29/21 08/23/22 History mg tablet atorvastatin 80 mg tablet 80 mg PO DAILY #90 tabs 09/06/21 08/23/22 Rx blood sugar diagnostic (Blood #50 ea 11/11/21 11/11/21 Rx Glucose Test strips) blood-glucose meter (Blood Glucose #1 ea 01/28/22 Rx Monitoring kit) progesterone micronized 100 mg 100 mg PO QAM 60 days #60 caps 04/06/22 08/23/22 Rx capsule icosapent ethyl 1 gram capsule 2 g PO BID #120 caps 05/05/22 08/23/22 Rx (Vascepa) lisinopril 2.5 mg tablet 2.5 mg PO DAILY #90 tabs 05/05/22 08/23/22 Rx levothyroxine 25 mcg tablet 25 mcg PO DAILY #90 tabs 07/25/22 08/23/22 Rx (Synthroid) linaclotide 72 mcg capsule 72 mcg PO DAILY #90 caps 08/08/22 08/23/22 Rx (Linzess) semaglutide 0.25 mg or 0.5 mg (2 1 mg subcut WEEKLY 08/23/22 08/23/22 History mg/1.5 mL) subcutaneous pen injector (Ozempic) trimethoprim 1 tab-cap PO DAILY 08/23/22 08/23/22 History Laboratory Tests 09/02/22 08:11 POC Capillary Glucose 117 mg/dl H mg/dl (65-105) Patient hx anesthesia problems: none Family hx anesthesia problems: none Results Review: All pre-operative results and documents have been reviewed as part of the pre-operative evaluation. [facility] Past Medical History Medical History Autoimmune disease Hyperlipidemia Hypertension Left renal atrophy Myocardial infarction Surgical History Surgical History H/O tubal ligation H/O: hysterectomy History of appendectomy History of bladder surgery History of cardiac catheterization History of heart artery stent Social History Social History Smoking status: Never smoker Alcohol intake: never Substance use: never Substance use type: does not use Lack of Transportation: No Concerned About Future Housing: No Difficulty Paying Gas/Electric Bills: No Difficulty Paying for Meds: No Currently Unemployed: No Education: Associate Degree Difficulty w/ Childcare or Family Care: No Living arrangements: with family Additional occupation/education comments: works in bank Gender identity (if verbalized by the patient): Female Spiritual care concerns: No Anes - Eval Final PreProcedure Day of Procedure 09/02/22 08:23 Patient weight: overweight Heart: regular rate and rhythm Lungs: clear to auscultation Airway: Mallampati scale class II Neurological: alert and oriented Last oral intake: >/= 8 hours ASA classi
[2022-09-02] MEDS: SIMETHICONE ORAL SUSPENSION 20 MG/0.3 ML 30 ML BOTTLE 0.6 ML IRRIGATION (09:04)
[2022-09-02 09:09] VITALS: BP 101/72; PULSE 72; RESP 14; O2SAT 96
[2022-09-02 09:19] VITALS: BP 101/71; PULSE 83; RESP 14; O2SAT 99
[2022-09-02 09:29] VITALS: BP 121/82; PULSE 79; RESP 16; O2SAT 99
== END 2022-09-02 09:45 | disposition home or self-care (01) ==
PROVIDERS: PCP Family Medicine; Visit Provider Internal Medicine Gastroenterology
PROC: 0DJD8ZZ Inspection of Lower Intestinal Tract, Via Natural or Artificial Opening Endoscopic (ICD-10-PCS; CPT 45378; principal; 2022-09-02 09:30)
DX: Z12.11 Encounter for screening for malignant neoplasm of colon (principal); I10 Essential (primary) hypertension; E78.5 Hyperlipidemia, unspecified; I25.2 Old myocardial infarction; N26.1 Atrophy of kidney (terminal); M35.9 Systemic involvement of connective tissue, unspecified; Z79.82 Long term (current) use of aspirin; Z79.899 Other long term (current) drug therapy
CPT/HCPCS: 45378; 82948; J2704; J7120

== ENCOUNTER 2023-11-27 11:37 | Outpatient (CLI) | payer BC, OTHER, SELFPAY ==
--- NOTE | ~2023-11-27 | XR_ITS ---
Clinical Indication: Upper respiratory infection PA and lateral views of the chest: Comparison: 10/05/2020 Findings: The lungs are clear, without evidence of focal consolidation or pleural effusion. Cardiome diastinal silhouette is within normal limits. Bones and soft tissues are unremarkable. Impression: Normal chest. Reviewed, dictated and finalized at [facility]. Impression: Normal chest.
== END 2023-11-27 11:38 | disposition home or self-care (01) ==
PROVIDERS: PCP Family Medicine; Visit Provider Family Medicine
DX: J06.9 Acute upper respiratory infection, unspecified (principal)
CPT/HCPCS: 71046

== ENCOUNTER 2024-01-08 09:53 | Outpatient (CLI) | payer BC, OTHER, SELFPAY ==
[2024-01-08 18:25] LABS: Hematocrit 42.2 % (37.0-47.0); Hemoglobin 12.9 g/dL (12.0-15.0); Mean Corpuscular HGB Conc 30.6 g/dl (32-36); Mean Corpuscular Hemoglobin 28.8 pg (26-34); Mean Corpuscular Volume 94.2 fl (80-100); Mean Platelet Volume 12.4 fl (7.4-10.4); Platelet Count Result 227 k/mm3 (150-375); Red Blood Count 4.48 M/mm3 (4.2-5.4); Red Cell Distribution Width 13.4 % (11.5-14.5); White Blood Count 6.3 K/mm3 (4.5-10.0)
[2024-01-08 18:53] LABS: Magnesium 2.2 mg/dL (1.6-2.3)
[2024-01-08 19:23] LABS: Vitamin D 25 Hydroxy 24.5 ng/mL
[2024-01-08 19:34] LABS: Free T4 Free Thyroxine 1.23 ng/mL (0.78-2.19)
[2024-01-08 19:56] LABS: Hemoglobin A1C 6.3 % (<5.7)
== END 2024-01-08 09:54 | disposition home or self-care (01) ==
PROVIDERS: PCP Family Medicine; Visit Provider Family Medicine
DX: E78.1 Pure hyperglyceridemia (principal); E78.5 Hyperlipidemia, unspecified; G47.33 Obstructive sleep apnea (adult) (pediatric); I10 Essential (primary) hypertension; I25.10 Atherosclerotic heart disease of native coronary artery without angina pectoris; K21.9 Gastro-esophageal reflux disease without esophagitis; L53.9 Erythematous condition, unspecified; M35.9 Systemic involvement of connective tissue, unspecified; N18.31 Chronic kidney disease, stage 3a; N25.81 Secondary hyperparathyroidism of renal origin; R53.83 Other fatigue; E11.65 Type 2 diabetes mellitus with hyperglycemia
CPT/HCPCS: 36415; 82306; 82607; 83036; 83735; 84439; 84443; 85027

== ENCOUNTER 2024-03-25 11:15 | Outpatient (CLI) | payer OTHER, SELFPAY ==
[2024-03-26 07:50] LABS: Hemoglobin A1C 10.4 % (<5.7)
== END 2024-03-25 11:16 | disposition home or self-care (01) ==
LOC: ANHBWCLAB 11:18
PROVIDERS: PCP Family Medicine; Visit Provider Family Medicine
DX: E11.9 Type 2 diabetes mellitus without complications (principal); E55.9 Vitamin D deficiency, unspecified; E78.5 Hyperlipidemia, unspecified; G47.33 Obstructive sleep apnea (adult) (pediatric); I25.10 Atherosclerotic heart disease of native coronary artery without angina pectoris; K21.9 Gastro-esophageal reflux disease without esophagitis; K76.0 Fatty (change of) liver, not elsewhere classified
CPT/HCPCS: 36415; 83036

== ENCOUNTER 2025-07-16 09:52 | Outpatient (CLI) | payer OTHER, SELFPAY ==
--- NOTE | ~2025-07-16 | XR_ITS ---
EXAMINATION: XR hand RT min 3V, XR wrist RT w scaphoid DATE: 07/16/2025 10:13 INDICATION: Right wrist injury with tenderness at the anatomic snuff box TECHNIQUE: 1. Posteroanterior, navicular, oblique, and lateral views of the right wrist were obtained. 2. Dorsal palmar, oblique and lateral views of the right hand were obtained. COMPARISON: None. FINDINGS: 2 mm ulnar minus variance. Alignment of the hand and wrist is otherwise normal. No fracture identified. Polyarticular osteoarthritis, and mild to moderate severity at the the second-fifth distal interphalangeal joints and mild at many of the remaining interphalangeal joints and at the distal radioulnar joint. Soft tissues are unremarkable. IMPRESSION: 1. No acute osseous abnormality at the right hand or wrist. 2. 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 Reviewed, dictated and finalized at [facility] IMPRESSION: 1. No acute osseous abnormality at the right hand or wrist. 2. Polyarticular osteoarthritis, mild to moderate at several of the distal inte rphalangeal joints.
[2025-07-16 11:04] LABS: Hematocrit 42.9 % (37.0-47.0); Hemoglobin 13.8 g/dL (12.0-15.0); Mean Corpuscular HGB Conc 32.2 g/dl (32-36); Mean Corpuscular Hemoglobin 29.2 pg (26-34); Mean Corpuscular Volume 90.7 fl (80-100); Platelet Count Result 210 k/mm3 (150-375); Red Blood Count 4.73 M/mm3 (4.2-5.4); White Blood Count 5.8 K/mm3 (4.5-10.0)
[2025-07-16 11:28] LABS: MALB Creatinine Ratio 8.8 mg/g (0-30)
[2025-07-16 13:39] LABS: Free T4 Free Thyroxine 1.59 ng/dL (0.78-2.19)
[2025-07-16 14:02] LABS: Alanine Aminotransferase 43 U/L (6-35); Albumin Level 4.8 g/dL (3.5-5.1); Alkaline Phosphatase 65 U/L (38-126); Anion Gap 10 mmol/L (4-12); Aspartate Amino Transferase 52 U/L (14-36); Bilirubin,Total 0.6 mg/dL (0.2-1.3); Blood Urea Nitrogen 23 mg/dL (7-17); Calcium 10.2 mg/dL (8.4-10.2); Carbon Dioxide 25 mmol/L (22-30); Chloride 105 mmol/L (98-107); Cholesterol 116 mg/dL (0-200); Estimated Glomerular Filt Rate 34; Glucose 91 mg/dL (65-110); HDL Direct 43 mg/dL; Potassium 4.4 mmol/L (3.4-5.0); Sodium 140 mmol/L (137-145); Total Protein 8.4 g/dL (6.3-8.2); Triglycerides 110 mg/dL (<150)
[2025-07-16 14:33] LABS: Thyroid Stimulating Hormone 2.180 uIU/mL (0.465-4.680)
[2025-07-16 14:52] LABS: Vitamin B12 256.0 pg/mL (239-931)
--- OUTSIDE RECORDS SUMMARY | 2025-07-17 09:43 | XMS_ITS | Clinical Summary ---
Author Organization [facility] Address [address] [place] [address] Care Team Providers Care Feather Baler Name Role Phone Jovan Eddy MD Unavailable [phone] Sacha Devine MD Primary Care Provider [phone] Leatha Epstein MD Unavailable [phone] Gonzales Hudson MD Unavailable [phone] Allergies Active Allergy Reactions Criticality Noted Date Comments Influenza Virus Vaccines Vomiting Low 10/28/2020 Hospitalized after receiving vaccine Latex Ofloxacin Shortness of breath,Palpitations, Swelling High 03/01/2012 Rash, SOB. Couldn't breath Venlafaxine Other (See comments),Shortness of breath High 05/21/2021 Headaches Headaches Medications aspirin 81 mg tablet Take 1 tablet (81 mg total) by mouth daily Active Vascepa 1 gram capsule Take 2 capsules (2 g total) by mouth 2 (two) times a day 04/16/20 20 Active levothyroxine (SYNTHROID) 25 mcg tablet Take 1 tablet (25 mcg total) by mouth bomb technician before breakfast Active cetirizine (ZyrTEC) 10 mg tablet Take 1 tablet (10 mg total) by mouth daily Active blood-glucose meter kit Please use according to the directions on the package. 1 kit 01/28/20 22 Active trimethoprim (TRIMPEX) 100 mg tablet Take 1 tablet (100 mg total) by mouth daily 09/10/20 22 Active magnesium hydroxide (MILK OF MAGNESIA) suspension 400 mg/5 mL Take 30 mL by mouth daily 118 mL 1 09/05/20 23 Active Additional Information Patient taking differently:30 mL oralAs needed, Reported on 04/03/2025 cholecalciferol (VITAMIN D-3) 50,000 unit capsule Take 1 capsule (50,000 Units total) by mouth once a week No certain day of the week 01/12/20 Active atorvastatin (LIPITOR) 80 mg tablet Take 1 tablet (80 mg total) by mouth daily Active nitroglycerin (NITROSTAT) 0.[address] 1 tablet (0.4 mg total) under the tongue every 5 (five) minutes as needed for chest pain Active OneTouch Ultra Test strip Onetouch ultra 2 strips 4 times daily. 400 strip 3 03/08/20 Active lancets 33 gauge misc Check blood sugar 4 times daily. 400 each 03/08/20 Active pen needle, diabetic 32 gauge x /32 needle Use with insulin 5 times daily. 500 each 3 04/04/20 24 Active insulin lispro (HumaLOG) 100 unit/mL pen for injectionIndications :Type 2 diabetes mellitus with hyperglycemia, with long-term current use of insulin (HCC) Inject 10 units before meals 3 x daily plus sliding scale before meals. Maximum daily dose 45 units. 30 mL 1 06/12/20 24 Active ezetimibe (ZETIA) 10 mg tablet TAKE 1 TABLET BY MOUTH EVERY DAY 90 tablet 2 11/12/19 25 Active tirzepatide (Mounjaro) 12.5 mg/0.5 mL pen injector injection Inject 0.5 mL (12.5 mg total) under the skin every 7 days Active fenofibrate nanocrystallized (TRICOR) 145 mg tablet TAKE 1 TABLET BY MOUTH EVERY DAY 90 tablet 3 12/14/19 25 Active carvediloL (COREG) 6.25 mg tablet TAKE 1 TABLET BY MOUTH TWICE A DAY WITH MEALS 180 tablet 3 01/25/20 25 Active Senexon-S 8.6-50 mg TAKE 2 TABLETS BY MOUTH NIGHTLY NEEDED FOR CONSTIPATION. 60 tablet 11 01/31/20 25 Active furosemide (LASIX) 20 mg tablet TAKE 1 TABLET BY MOUTH EVERY DAY 90 tablet 3 02/21/20 25 Active Dexcom G7 Sensor deviceIndications:Ty pe 2 diabetes mellitus with hyperglycemia, with long-term current use of insulin (HCC) CHANGE EVERY 10 DAYS. Type 2 diabetes mellitus with hyperglycemia, with long-term current use of insulin E11.65, Z79.4 9 each 1 06/11/20 Active Active Problems Problem Noted Date Diagnosed Date RUQ pain 04/14/2025 Assessment & Plan (04/14/2025 9:09 AM CDT): Complains of on and off abdominal pain. Advice to follow-up with gastroenterology for further evaluation and management. Atrial contractions, premature 08/26/2024 Assessment & Plan (08/26/2024 9:47 AM CLAIM PROCESSOR): Not bothersome. Coreg, counseled on lifestyle modifications. Check TSH and electrolytes. Type 2 diabetes mellitus wit h hyperglycemia, with long-term current use of insulin 06/12/2024 Type 2 diabetes mellitus wit h chronic kidney disease, with long-term current use of insulin 03/02/2024 Assessment & Plan (04/14/2025 9:05 AM CDT): Chronic and stable. Today A1c 6.3%. CGM data showed target- 94%. High- 6%. Very high- 0%. Low- 0%, occasional mild hyperglycemia after meals. Plan Continue lispro sliding scale before meals-2 units for every 50 mg/dL above 150. Blood sugar less than 150-no extra Humalog Blood sugar 150-200 = 2 unit Blood sugar 201-250 = 4 units Blood sugar 251-300 = 6 units Blood sugar 301-350 = 8 units Blood sugar 351-400 = 10 units. Continue Mounjaro 12.5 mg weekly. Check blood glucose 4 times daily before meals and bedtime. Call with blood glucose less than 80 or above 200 consistently. Follow consistent carb diet. Participate in exercise regimen as tolerated. Obtain annual dilated eye exam. Educated on ways to avoid and treat hypoglycemia. Rotate injection and sensor sites every time. Follow up in [address] Mahmood. Assessment & Plan (04/08/2024 8:37 AM CDT): This is 53-year-old female with CKD seen for management of type 2 diabetes mellitus. CGM data showed target- 81%. High- 15%. Very high- 4%. Low- 0%, occasional hyperglycemia. Plan Decrease Lantus 20 units twice daily. Decrease lispro 12 units 3 times daily before meals plus lispro sliding scale before meals-2 units for every 50 mg/dL above 150. Decrease Lispro to 10 units 3 times daily before meals after staring Mounjaro 5 mg dose. Blood sugar less than 150-no extra Humalog Blood sugar 150-200 = 2 unit Blood sugar 201-250 = 4 units Blood sugar 251-300 = 6 units Blood sugar 301-350 = 8 units Blood sugar 351-400 = 10 units. Hold Humalog if pre meal BG below 100. Continue Farxiga 5 mg daily. Increase Mounjaro 5 mg weekly. Check blood glucose before meals and bedtime. Call with blood glucose less than 80 or above 200 consistently. Follow consistent carb diet. Participate in exercise regimen as tolerated. Obtain annual dilated eye exam. Educated on ways to avoid and treat hypoglycemia. Rotate injection and sensor sites each time. Follow-up in 3 months. Assessment & Plan (03/08/2024 2:51 PM CDT): This is a 53-year-old female seen for chronic and uncontrolled type 2 diabetes mellitus. Recent A1c 6.6%. CGM data review showed persistently elevated blood sugar levels. Plan Continue Lantus 20 units twice daily. Increase lispro 12 units 3 times daily before meals plus lispro sliding scale before meals-2 units for every 50 mg/dL above 150. Blood sugar less than 150-no extra Humalog Blood sugar 150-200 = 2 unit Blood sugar 201-250 = 4 units Blood sugar 251-300 = 6 units Blood sugar 301-350 = 8 units Blood sugar 351-400 = 10 units. Restart Farxiga 5 mg daily. Check blood glucose before meals and bedtime. Call with blood glucose less than 80 or above 200 consistently. Follow consistent carb diet. Participate in exercise regimen as tolerated. Obtain annual dilated eye exam. Educated on ways to avoid and treat hypoglycemia. Rotate injection and sensor sites each time. Keep well hydrated with water. Follow up in 3 weeks. Hyperglycemia 03/01/2024 Chronic constipation 01/24/2024 Irritable bowel syndrome wit h both constipation and diarrhea 01/24/2024 Acute kidney injury 01/23/2024 Chest pain, unspecified type 01/20/2024 Fecal impaction 09/04/2023 Nausea and vomiting 09/04/2023 Adnexal cyst 09/04/2023 Type 2 diabetes mellitus wit h kidney complication, without long-term current use of insulin 04/07/2022 Hypertriglyceridemia 08/09/2021 Transient alteration of awareness 10/29/2020 Assessment & Plan (10/29/2020 12:31 AM CLAIM PROCESSOR): Patient did not have a syncopal episode. She did not fall during these episodes where she became unaware of time. She lost 5 minutes and 25 minutes while at work. Suspected may be due to patient's lower normal blood pressures. Patient received a 500 cc bolus and has had improved blood pressures since then. Symptoms have not recurred since prior to admission. Will continue to monitor. Patient is on tele. Hypothyroid 10/29/2020 Assessment & Plan (04/14/2025 9:04 AM CDT): Clinically and biochemically euthyroid. Continue levothyroxine 25 mcg daily. Assessment & Plan (04/08/2024 8:37 AM CDT): Recent TSH level is normal. Continue levothyroxine 25 mcg daily. Assessment & Plan (03/08/2024 2:49 PM CDT): Recent TSH level is normal. Continue levothyroxine 25 mcg daily. Assessment & Plan (10/29/2020 12:12 AM CLAIM PROCESSOR): Continue levothyroxine Coronary artery disease invo lving [place] heart with angina pectoris 10/28/2020 Assessment & Plan (10/29/2020 12:15 AM CLAIM PROCESSOR): Patient having chest pressure currently. Improved with nitroglycerin but has worsened since nitroglycerin was removed. Will resume nitroglycerin paste. She is status post stents on 10/21. Continue aspirin and Brilinta. Continue carvedilol. Cardiology has been consulted, will await their evaluation. Chest pain 10/19/2020 Old ND (myocardial infarction) 05/06/2020 Fatigue 07/05/2016 Hyperlipidemia 07/05/2016 Assessment & Plan (04/14/2025 9:03 AM CDT): Continue fenofibrate, Zetia and atorvastatin. Assessment & Plan (08/26/2024 9:46 AM CLAIM PROCESSOR): See CAD. Assessment & Plan (04/08/2024 8:37 AM CDT): Continue fenofibrate, Zetia and atorvastatin. Assessment & Plan (03/08/2024 2:50 PM CDT): Continue fenofibrate, Zetia and atorvastatin. Assessment & Plan (02/26/2024 10:05 AM CDT): See CAD. Assessment & Plan (10/29/2020 12:33 AM CLAIM PROCESSOR): Continue statin. Vascepa non formulary and patient is not interested in [place] 3 interchange. Abnormal glucose level 07/05/2016 Coronary artery disease invo lving [place] coronary artery of [place] heart without angina pectoris 07/05/2016 Assessment & Plan (08/26/2024 9:46 AM CLAIM PROCESSOR): Improved, [facility] with PCI in 2014 and . [facility] with mild ISR 01/2024. Denies Angina today in clinic. ASA and statin. Coreg 6.25 mg BID, Farxiga 5 mg daily, Zetia 10 mg daily, tricor 145 mg daily, vescepa 1 gram daily and Lipitor 80 mg daily-LDL December. Assessment & Plan (02/26/2024 10:08 AM CDT): Improved, [facility] with PCI in 2014 and . [facility] with mild ISR 01/2024. Denies Angina today in clinic. No longer taking Imdur. Struggling with Hyperglycemia-she will reach out to endocrine for additional recs when she leaves today. ASA and statin. Coreg 6.25 mg BID, Farxiga 5 mg daily, Zetia 10 mg daily, tricor 145 mg daily, vescepa 1 gram daily and Lipitor 80 mg daily-LDL 61 daily. Hypertension 07/05/2016 Assessment & Plan (04/14/2025 9:04 AM CDT): Continue Coreg. Assessment & Plan (04/08/2024 8:38 AM CDT): Continue Coreg. Assessment & Plan (03/08/2024 2:50 PM CDT): Continue Coreg. Assessment & Plan (10/29/2020 12:13 AM CLAIM PROCESSOR): Blood pressure is controlled at this time. Carvedilol and amlodipine have been resumed with hold parameters. Holding losartan due to acute kidney injury. Kidney disease Immunizations Immunization Administration Dates Next Due Sars-CoV-2, Unspecified 12/18/2020 Surgical History Surgery Date Site/Laterality Comments CARDIAC STENT PLACEMENT HYSTERECTOMY APPENDECTOMY CHOLECYSTECTOMY 07/12/2018 - 08/10/2018 Medical History Medical History Date Comments Diabetes mellitus Renal disorder Hyperlipidemia Hypertension Pyelonephritis Headache Kidney disease Heart attack (HCC) Heart attack at age 45. Cholecystitis 07/2018 Family History Medical History Relation Name Comments Coronary artery disease Father Reuben Fami ly history of coronary artery disease - (Added by TW Conv) Heart attack Father Reuben Hyperlipidemia Father Reuben Family histor y of hyperlipidemia - (Added by TW Conv) Kidney disease Father Reuben Cancer Maternal Grandfather Brandon Colon cancer Maternal Grandfather Brandon Diabetes Maternal Grandfather Brandon Hypertension Maternal Grandfather Brandon Thyroid disease Mother Missy Family histo ry of thyroid disease - (Added by TW Conv) Heart attack Paternal Grandfather Brandon Relation Name Status Comments Father Reuben Maternal Grandfather Brandon Mother Missy Paternal Grandfather Brandon Social History Tobacco Use Types Packs/Day Years Used Date Smoking Tobacco: Never Smokeless Tobacco: Never Alcohol Use Standard Drinks/Week Comments Yes 0 (1 standard drink = 0.6 oz pur e alcohol) one drink/year AUDIT-C Answer Date Recorded Q1: How often do you have a drink containing alc ohol? Never 08/27/2024 Average Number of Drinks Not on file 024 Frequency of Binge Drinking Not on file 08/11 Personal Safety Answer Date Recorded Have you ever been in or are you currently in a harmful physical or emotional relationship or is someone making you feel afraid or unsafe? Denies 03/01/2024 Comments No Sex and Gender Information Value Date Recorded Sex Assigned at Not on file Legal Sex Female 3:56 AM CLAIM PROCESSOR Gender Identity Female 11/02/2020 12:59 PM CLAIM PROCESSOR Sexual Orientation Straight 11/02/2020 12 :59 PM CLAIM PROCESSOR Last Filed Vital Signs Vital Sign Reading Time Taken Comments Blood Pressure 101/70 04/14/2025 7:28 AM CDT Pulse 95 04/14/2025 7:28 AM CDT Temperature 36.5 C (97.7 F) 03/02/2024 8:35 AM CDT Respiratory Rate 16 04/14/2025 7:28 AM CDT Oxygen Saturation 98% 04/03/2025 3:39 PM CDT Inhaled Oxygen Concentration - - Weight 67.7 kg (149 lb 3.2 oz) 04/14/2025 7:28 A M CDT Height 154.9 cm (5' 1) 04/14/2025 7:28 AM CDT Body Mass Index 28.19 04/14/2025 7:28 AM CDT Plan of Treatment Health Maintenance Due Date Last Done Comments Breast Cancer Screening-Mammogram 1972 Colon Cancer Screening-Colonoscopy 1972 Depression Screening 1972 Hepatitis C Screening 1972 DTaP/Tdap/Td Vaccine (1 - Tdap) 1983 Hepatitis B Screening 1990 Regular Well Visit/Exam 18-64 1990 Pneumococcal vaccine <65 (1 of 2 - PCV) 1991 Zoster Vaccine (1 of 2) 2022 Lipid Panel 01/01/2025 01/02/2024, 08/12, 08/10/2021, Additional history exists Albumin Creatinine Ratio, Urine 04/04/2025 Covid-19 Vaccine (4 - 2024-2 6 season) 2025 03/28/2021, 03/06/2021, 12/18/2020 Influenza Vaccine (#1) 2025 Dilated Eye Exam 07/01/2025 07/01/2024, 04/23/2024 Hemoglobin A1C 10/15/2025 04/14/2025, 04/0 12/2024, 06/12/2024, Additional history exists eGFR 12/13/2025 12/13/2024, 08/11, 06/12/2024, Additional history exists Foot Exam 04/14/2026 04/14/2025, 06/12/2024 Medical Devices Implanted Type Area Small Offset Printer Device Identifier Shelf Expiration Date Model / Serial / Lot Daig Stefany/[employer] [id number] Angio-Seal Evolution 6fr .035in Guidewire Bypass Tube Suture - [id number] - [id number] Implanted:Qty : 1 on 10/21/2020 by Mabel Lauren MD at [facility] Collagen [employer] Stefany 07/11/2021 [id number] / [id number] / [id number] [employer] Stefany Angio-Seal Vip 6fr Closere Device [id number] - [id number] - [id number] Implanted:Qty : 1 on 01/22/2024 by Shady Sandoval MD at [facility] Collagen Right: Femoral [employer] Stefany 10/11/2024 [id number] / [id number] / [id number] [employer] [id number] Stent Coronary Drug Eluting Orsiro 3.0mm 35cm - [id number] - [id number] Implanted:Qty : 1 on 10/21/2020 by Mabel Lauren MD at [facility] Stent [employer] 04/22/2021 [id number] / [id number] / [id number] Stent Heart Procedures Procedure Name Priority Date/Time Associated Diagnosis Comments POCT HEMOGLOBIN A1C Routine 04/14/2025 7 :46 AM CDT Type 2 diabetes mellitus with stage 3a chronic kidney disease, with long-term current use of insulin (HCC) EGFR Routine 12/13/2024 10:54 AM CDT Type 2 diabetes mellitus with hyperglycemia, with long-term current use of insulin (HCC) DIABETIC EYE EXAM Routine 07/01/2024 4:0 2 PM CDT ALBUMIN CREATININE RATIO, URINE Routine 04/04/2024 10:06 AM CDT Type 2 diabetes mellitus with stage 3a chronic kidney disease, with long-term current use of insulin (HCC) LIPID PANEL Routine 01/02/2024 8:39 AM CDT Hyperlipidemia, unspecified hyperlipidemia type Coronary artery disease involving [place] coronary artery of [place] heart without angina pectoris Coronary artery disease involving [place] heart with angina pectoris, unspecified vessel or lesion type Medication course changed from Last 3 Months or Most Recently Relevant to Health Maintenance Results * (ABNORMAL) POCT hemoglobin A1c (04/14/2025 7:46 AM CDT) Hemoglobin A1C, POC 6.3(A) 4.0 - 5.6 % Blood 04/14/2025 7:46 AM CDT Anthony Goodrich NP POINT OF CARE TEST ORDERABL ES Final Result * (ABNORMAL) eGFR (12/13/2024 10:54 AM CDT) eGFR 42(L) >=60 mL/min/1. 73 m2 Comment: Interpretive Data Reference Interval Normal >/= 90 mL/min/1.73m2 Mildly decreased* 60 - 89 mL/min/1.73m2 Mildly to moderately decreased 45 - 59 mL/min/1.73m2 Moderately to severely decreased 30 - 44 mL/min/1.73m2 Severely decreased 15 - 29 mL/min/1.73m2 Kidney Failure < 15 mL/min/1.73m2 *Relative to young adult level Estimated glomerular filtration rate is determined by the 2020 CKD-EPI equation recommended by the National Kidney Foundation (A Unifying Approach to GFR Estimation: Recommendations of the NKF-ASK Task Force on Reassessing the Inclusion of Race in Diagnosing Kidney Disease, JASN 2020). The CKD-EPI equation should not be used for patients with unstable renal function and has not been validated in children and those over 70. Current interpretive data was last reviewed 2021. Blood 12/13/2024 10:5 4 AM CDT 12/13/2024 1:45 PM CDT Lyssa Mahmood MD LAB BLOOD ORDERABLES Final R esult Performing Organization Address City/[facility]/ZIP Co de Phone Number [facility] [address] Department of Laboratories [place], [place] [id number] * Diabetic Eye Exam (07/01/2024 4:02 PM CDT) Historical Provider HEALTH MAINTENANCE Final Result * Albumin Creatinine Ratio, Urine (04/04/2024 10:06 AM CDT) Albumin Ur <12.0 mg/L Comment: Interpretive Data No reference range established. Current interpretive data was last revised 2019. Creatinine Ur 86.4 mg/dL [facility] Comment: Interpretive Data No reference range established. Current interpretive data was last revised 2019. Albumin Creatinine Ratio, Ur <14 1 - 29 mg/g [facility] Urine 04/04/2024 10:0 6 AM CDT 04/04/2024 10:11 AM CDT Anthony Goodrich NP LAB URINE ORDERABLES Final Result Performing Organization Address City/[facility]/ZIP Co de Phone Number [facility] [address] Department of [employer] [place] [address] * (ABNORMAL) Lipid panel (01/02/2024 8:39 AM CDT) Cholesterol 120 <200 mg/dL [facility] HDL 36(L) > OR = 50 mg/dL [facility] Triglycerides 144 <150 mg/dL [facility] LDL 61 mg/dL (calc) [facility] Comment: Reference range: <100 Desirable range <100 mg/dL for primary prevention; <70 mg/dL for patients with CHD or diabetic patients with > or = 2 CHD risk factors. LDL-C is now calculated using the Coral calculation, which is a validated novel method providing better accuracy than the Friedewald equation in the estimation of LDL-C. Perry NOONAN et al. EVARISTO. 2013;310(19): 9345-8494 (http://IntervalZero.[employer]co[employer] Medical/faq/HWY263) Chol/HDL ratio 3.3 <5.0 (calc) [facility] Non-HDL, (LDL+VLDL) 84 <130 mg/dL (calc) [facility] Comment: For patients with diabetes plus 1 major ASCVD risk factor, treating to a non-HDL-C goal of <100 mg/dL (LDL-C of <70 mg/dL) is considered a therapeutic option. Blood 01/02/2024 8:39 AM CDT 01/02/2024 8:40 AM CDT Narrative [facility] - 01/03/2024 4:20 AM CDT FASTING:YES FASTING: YES Gonzales Hudson MD LAB BLOOD ORDERABLES Final Re sult [facility] [address] [place] [address] from Last 3 Months or Most Recently Relevant to Health Maintenance Insurance dateIITians ACCESS OOS Member Subscriber Plan / Payer (Ef fective 2018-Present) Name:Lilly Salmeron Relation to Subscriber:Self Name:Lilly Salmeron Payer ID:[id number] (NAIC) Type:[facility] Address: [facility] [id number] [address] OPEN ACCESS [facility] CHOICE [facility] HMO/PPO Address: [address] [address] [place] [address] [facility] H[facility]/PPO Address: [address] [address] [place] [address] Advance Directives For more information, please contact: [phone] * Full Code (Latest Code Status on File) Date Activated Date Inactivated Comments 03/01/2024 11:44 PM 03/02/2024 7:08 PM * Full Code Date Activated Date Inactivated Comments 01/20/2024 7:43 AM 01/23/2024 8:33 PM * Full Code Date Activated Date Inactivated Comments 09/04/2023 3:24 PM 09/05/2023 6:22 PM * Full Code Date Activated Date Inactivated Comments 10/28/2020 2:02 PM 10/30/2020 9:36 PM * Full Code Date Activated Date Inactivated Comments 10/20/2020 12:36 AM 10/21/2020 10:05 PM Care Teams Feather Baler Relationship Specialty Start Date End Date Sacha Devine MD PCP - General Family Practice 01/27/22 Jovan Eddy MD Consulting Physician Nephrology 10/30/20 Leatha Epstein MD [address] [place] [address] [address] Consulting Physician Gastroenterology 09/05/23 Gonzales Hudson MD [address] [place] [id number] Referring Physician Cardiology 01/23/24
--- OUTSIDE RECORDS SUMMARY | 2025-07-17 09:43 | XMS_ITS | Clinical Summary ---
Author Organization [employer] Alyssaashley castillo [facility] Address [address] [place] [address] Care Team Providers Care Picker Tender Helper Name Role Phone Unavailable Primary Care Provider Unavailabl e Social History Tobacco Use Types Packs/Day Years Used Date Smoking Tobacco: Never Assessed Comments Unknown Sex and Gender Information Value Date Recorded Sex Assigned at Not on file Legal Sex Female 1:09 PM CDT Gender Identity Not on file Sexual Orientation Not on file Plan of Treatment Health Maintenance Due Date Last Done Comments DTAP/TDAP/TD VACCINES (1 - Tdap) 1991 HEPATITIS B VACCINES (1 of 3 - 19+ 3-dose series) 10/13 HPV/Cotest (21-29) 1993 CERVICAL CANCER SCREENING 2002 HPV/Cotest (30-65) 2002 PAP SMEAR 2002 BREAST CANCER SCREENING 2012 COLORECTAL SCREENING 2017 Colorectal Cancer Screening 2017 FIT-DNA Q 3 years 2017 FIT/FOBT Q 1 year 2017 Flex Sig/CT Colonography Q 5 years 2017 ZOSTER VACCINE (1 of 2) 2022 INFLUENZA VACCINE (#1) 2025
--- OUTSIDE RECORDS SUMMARY | 2025-07-17 09:43 | XMS_ITS | Clinical Summary ---
Author Organization [facility] Cristina tillman Address [address] [place] [address] Phone Care Team Providers Care Guest Room Inspector Name Role Phone Sacha Devine MD Primary Care Provider [phone] Allergies Active Allergy Reactions Criticality Noted Date Comments Influenza Vaccines Vomiting Low 10/28/2020 Hospitalized after receiving vaccine Latex Unknown 03/05/2021 Ofloxacin Palpitations,Shortne ss of breath,Swelling High 03/01/2012 Rash, SOB. Couldn't breath Venlafaxine Other (see comments),Shortness of breath High 05/21/2021 Headaches Headaches Headaches Medications amantadine (SYMMETREL) 100 MG capsule Take 100 mg by mouth 1 (one) time each day 05/23/20 21 Active ascorbic acid (VITAMIN C) 500 mg chewable tablet Chew 500 mg daily Ac tive aspirin (ST RAMON) 81 MG EC tablet 1 (one) time each day Active atorvastatin (LIPITOR) 80 MG tablet Take 80 mg by mouth 1 (one) time each day 06/09/20 21 Active carvedilol (COREG) 3.125 MG tablet Take 3.125 mg by mouth 2 (two) times a day with meals 06/09/20 21 Active Cobalamin Combinations (Vitamin P97-Mbdvt Acid) 500-400 MCG tablet Take 1 tablet by mouth daily Active cetirizine (ZyrTEC) 10 MG tablet Take 10 mg by mouth daily Active ergocalciferol (VITAMIN D-2) 1.25 MG (83528 UT) capsule TK ONE C PO Q MONTH 04/16/20 20 Active fenofibrate (TRICOR) 145 MG tablet 06/11/20 21 Active furosemide (LASIX) 20 MG tablet 06/21/20 21 Active Icosapent Ethyl 1 g capsule 06/18/20 21 Active levothyroxine (SYNTHROID) 25 MCG tablet Take 25 mcg by mouth 1 (one) time each day 06/09/20 21 Active methenamine hippurate (HIPREX) 1 g tablet Take 1 g by mouth 2 (two) times a day 05/22/20 21 Active Multiple Vitamins-Mineral s (QC Daily Multivit/Multimi neral) tablet Take 1 tablet by mouth daily Active nitroglycerin (NITROSTAT) 0.[address] 0.4 mg under the tongue 10/21/19 21 Active pantoprazole (PROTONIX) 20 MG EC tablet 06/09/20 21 Active Progesterone 200 MG capsule TAKE 1 CAPSULE BY MOUTH EVERY EVENING WITH A FATTY MEAL 05/10/20 21 Active Brilinta 90 MG tablet Take 90 mg by mouth 2 (two) times a day 06/09/20 21 Active venlafaxine XR (EFFEXOR-XR) 37.5 MG 24 hr capsule Take 37.5 mg by mouth 1 (one) time each day 05/14/20 21 Active Progesterone 100 MG capsule 09/21/19 22 Active Acetaminophen Extra Strength 500 MG tablet Take 1,000 mg by mouth every 6 (six) hours if needed for pain 01/29/20 22 Active amitriptyline (ELAVIL) 25 MG tablet Take 25 mg by mouth every night 12/23/19 22 Active amLODIPine (NORVASC) 5 MG tablet Take 5 mg by mouth 1 (one) time each day 02/09/20 22 Active Blood Glucose Monitoring Suppl (ONE TOUCH ULTRA 2) w/Device kit See administration instructions 01/29/20 22 Active cephalexin (KEFLEX) 500 MG capsule TAKE 1 CAPSULE BY MOUTH 2 TIMES DAILY FOR 14 DAYS 02/27/20 22 Active docusate sodium (COLACE) 100 MG capsule Take 100 mg by mouth 2 (two) times a day 02/19/20 22 Active glimepiride (AMARYL) 4 MG tablet Take 4 mg by mouth 1 (one) time each day with breakfast 02/22/20 22 Active indomethacin (INDOCIN) 50 MG capsule 03/08/20 22 Active Lidocaine HCl Urethral/Mucosal 2 % prefilled syringe APPLY 30 ML TO AFFECTED AREA TWICE DAILY NEEDED FOR PAIN 02/18/20 Active lisinopril (PRINIVIL) 2.5 MG tablet 02/29/20 Active metFORMIN (GLUCOPHAGE) 1000 MG tablet Take 1,000 mg by mouth 2 (two) times a day 02/22/20 Active ondansetron ODT (ZOFRAN-ODT) 4 MG dispersible tablet DISSOLVE 1 TABLET ON THE TONGUE EVERY 8 HOURS NEEDED FOR NAUSEA OR VOMITING 02/09/20 Active oxyCODONE (ROXICODONE) 5 MG immediate release tablet Take 5 mg by mouth every 6 (six) hours if needed for pain 02/18/20 Active Ubrelvy 50 MG tablet TAKE 1 TABLET BY MOUTH DAILY NEEDED FOR MIGRAINES 02/22/20 Active atorvastatin (LIPITOR) 80 MG tablet TAKE 1 TABLET BY MOUTH DAILY 07/25/20 Active albuterol HFA (PROVENTIL HFA) 108 (90 Base) MCG/ACT inhaler INHALE 1 PUFF BY MOUTH EVERY 4 HOURS NEEDED FOR SHORTNESS OF BREATH OR WHEEZING 08/15/20 Active benzonatate (TESSALON) 200 MG capsule TAKE 1 CAPSULE BY MOUTH THREE TIMES DAILY NEEDED FOR COUGH 08/15/20 Active guaiFENesin-code ine (ROBITUSSIN-AC) 100-10 MG/5ML syrup TAKE 5 ML BY MOUTH EVERY DAY AT BEDTIME 08/15/20 Active Linzess 72 MCG capsule Take 1 capsule by mouth 1 (one) time each day 08/08/20 Active Ozempic, 1 MG/DOSE, 4 MG/3ML solution pen-injector INJECT 1 MG UNDER THE SKIN EVERY 7 DAYS 07/31/20 Active trimethoprim (TRIMPEX) 100 MG tablet Take 100 mg by mouth 1 (one) time each day 08/07/20 Active Active Problems Problem Noted Date Diagnosed Date Type 2 diabetes mellitus 04/07/2022 Constipation 02/15/2022 Nausea without vomiting 02/15/2022 Postoperative pain 02/15/2022 Atrophy of kidney 07/12/2021 Hypothyroidism 10/29/2020 Overview (07/12/2021): Last Assessment & Plan: Continue levothyroxine Transient alteration of awareness 10/29/2020 Overview (07/12/2021): Last Assessment & Plan: Patient did not have a syncopal episode. [...] continue to monitor. Patient is on tele. Chest pain 10/19/2020 Old myocardial infarction 05/06/2020 Abnormal glucose level 07/05/2016 Coronary atherosclerosis 07/05/2016 Overview (07/12/2021): Last Assessment & Plan: Patient having chest pressure currently. Improved with nitroglycerin but has worsened since nitroglycerin was removed. Will resume nitroglycerin paste. She is status post stents on 10/21. Continue aspirin and Brilinta. Continue carvedilol. Cardiology has been consulted, will await their evaluation. Fatigue 07/05/2016 Hyperlipidemia 07/05/2016 Overview (07/12/2021): Last Assessment & Plan: Continue statin. Vascepa non formulary and patient is not interested in [place] [address]. Last Assessment & Plan: Continue statin. Vascepa non formulary and patient is not interested in [place] [address]. Hypertension 07/05/2016 Overview (07/12/2021): Last Assessment & Plan: Blood pressure is controlled at this time. Carvedilol and amlodipine have been resumed with hold parameters. Holding losartan due to acute kidney injury. Last Assessment & Plan: Blood pressure is controlled at this time. Carvedilol and amlodipine have been resumed with hold parameters. Holding losartan due to acute kidney injury. Dyspepsia 04/03/2012 Lower abdominal pain 04/03/2012 Immunizations Immunization Administration Dates Next Due Sars-cov-2, Unspecified 12/18/2020 Family History Medical History Relation Comments End stage renal disease Father Relation Status Comments Father Social History Tobacco Use Types Packs/Day Years Used Date Smoking Tobacco: Never Smokeless Tobacco: Never Tobacco Cessation:Counseling Given: Not Answered Alcohol Use Standard Drinks/Week Comments Yes 0 (1 standard drink = 0.6 oz pur e alcohol) Comments Unknown Sex and Gender Information Value Date Recorded Sex Assigned at Female 06/24/2021 1:15 PM MDT Legal Sex Female 8:03 AM MDT Gender Identity Female 06/24/2021 1:15 PM MDT Sexual Orientation Straight 06/24/2021 1: 15 PM MDT Last Filed Vital Signs Vital Sign Reading Time Taken Comments Blood Pressure 134/72 08/24/2022 8:50 AM ALLOPATHIC DOCTOR Pulse - - Temperature 36.8 C (98.2 F) 08/24/2022 8:50 AM ALLOPATHIC DOCTOR Respiratory Rate 18 08/24/2022 8:50 AM ALLOPATHIC DOCTOR Oxygen Saturation - - Inhaled Oxygen Concentration - - Weight 70.3 kg (155 lb) 08/24/2022 8:50 AM ALLOPATHIC DOCTOR Height 165.1 cm (5' 5) 08/24/2022 8:50 AM ALLOPATHIC DOCTOR Body Mass Index 25.79 08/24/2022 8:50 AM ALLOPATHIC DOCTOR Plan of Treatment Health Maintenance Due Date Last Done Comments Influenza Vaccine (#1) 2025 Insurance [employer] Care Teams Guest Room Inspector Relationship Specialty Start Date End Date Sacha Devine MD PCP - General Family Medicine 06/29/21
--- OUTSIDE RECORDS SUMMARY | 2025-07-17 09:43 | XMS_ITS | Clinical Summary ---
Author Organization [facility] Address [address] [place] [address] Phone Care Team Providers Care Freight Rate Clerk Name Role Phone Sacha Devine MD Primary Care Provider [phone] Karsten Malik MD Unavailable [phone] Yue Mcnulty APRN, DISH TECHNICIAN Unavailable + [phone] Allergies Active Allergy Reactions Criticality Noted Date Comments Venlafaxine Hcl Other (see Comments) 05/21/2021 Headaches Ofloxacin Swelling 01/01/2021 Medications Ascorbic Acid 500 MG Capsule Take by mouth. Active Multiple Vitamin (MULTIVITAMINS PO) Take by mouth. Activ e carvedilol (COREG) 3.125 MG Tablet Take 3.125 mg by mouth 2 times daily. Active nitroGLYCERIN (NITROSTAT) 0.4 MG SL Tablet 0.4 mg by Sublingual route every 5 minutes as needed. Active atorvastatin (LIPITOR) 80 MG Tablet Take 80 mg by mouth daily. Active levothyroxine (SYNTHROID) 25 MCG Tablet Take 25 mcg by mouth daily. Active Icosapent Ethyl 1 g Capsule Take by mouth. Act carolyn Progesterone 200 MG Capsule Take 100 mg by mouth daily. Hazardous: Medication requires special safe handling and disposal. Active aspirin EC 81 MG Tablet Delayed Response Take 81 mg by mouth daily. Active furosemide (LASIX) 20 MG Tablet Take 20 mg by mouth daily. Active Blood Glucose Monitoring Suppl (ONE TOUCH ULTRA 2) w/Device Kit 2 Active fenofibrate (TRICOR) 145 MG Tablet 2 Active OneTouch Ultra Strip 2 Active lisinopril (PRINIVIL, ZESTRIL) 2.5 MG Tablet Take 2.5 mg by mouth daily. 2 Active Semaglutide (OZEMPIC, 1 MG/DOSE, SC) 1 mg by Subcutaneous route once a week. Active linaCLOtide (LINZESS PO) Take by mouth. Ac tive Active Problems No known active problems Family History Medical History Relation Name Comments Diabetes Father Heart Disease Father Kidney Disease Father Diabetes Maternal Grandfather Heart Disease Maternal Grandfather Relation Name Status Comments Father Maternal Grandfather Mother Alive Social History Tobacco Use Types Packs/Day Years Used Date Smoking Tobacco: Never Smokeless Tobacco: Never Alcohol Use Standard Drinks/Week Comments Yes 0 (1 standard drink = 0.6 oz pur e alcohol) rarely Comments No Sex and Gender Information Value Date Recorded Sex Assigned at Not on file Legal Sex Female 11:35 PM CDT Gender Identity Not on file Sexual Orientation Not on file Last Filed Vital Signs Vital Sign Reading Time Taken Comments Blood Pressure 136/94 10/26/2022 9:44 AM PRESS CUTTER Pulse 83 10/26/2022 9:44 AM PRESS CUTTER Temperature 36.3 C (97.3 F) 10/26/2022 9:44 AM PRESS CUTTER Respiratory Rate 20 02/21/2022 9:17 AM CDT Oxygen Saturation 98% 10/26/2022 9:44 AM PRESS CUTTER Inhaled Oxygen Concentration - - Weight 70.5 kg (155 lb 6.4 oz) 08/23/2022 9:44 A M PRESS CUTTER Height 154.9 cm (5' 1) 02/21/2022 9:17 AM CDT Body Mass Index 29.36 02/21/2022 9:17 AM CDT Plan of Treatment Health Maintenance Due Date Last Done Comments Hepatitis C Virus (HCV) Screening 1972 TdaP Immunization 1972 Hepatitis B Immunization (1 of 3 - 19+ 3-dose series) 1991 Cologuard 2017 Colonoscopy 2017 Colorectal Cancer Screening 2017 Immunochemical Fecal Occult Blood 2017 Pneumococcal Immunization (5 0+ years) (2 of 2 - PCV) 2022 11/04/2021 Zoster Immunization (1 of 2) 2022 Influenza Immunization (#1) 2025 SARS-COV-2 Immunization (3 - season) 2025 03/28/2021, 03/06/2021 Respiratory Syncytial Virus (RSV) Immunization (Adult) (1 - 1-dose 75+ series) 2047 Pneumococcal Immunization Combined Discontinued 11/04/2021 Human Papillomavirus (HPV) Immunization Aged Out No longer eligible based on patient's age to complete this topic Meningococcal Immunization (ACWY) Aged Out No longer eligible based on patient's age to complete this topic Rotavirus Immunization Aged Out No lo nger eligible based on patient's age to complete this topic Insurance [facility] Care Teams Freight Rate Clerk Relationship Specialty Start Date End Date Sacha Devine MD PCP - General Family Medicine 11/22/21 Karsten Malik MD [address] [place] [address] Consulting Physician Neurology 11/22/21 Yue Mcnulty APRN, DISH TECHNICIAN [address] [place] [address] Nurse Practitioner Advanced Practice Nurse 08/23/22
--- OUTSIDE RECORDS SUMMARY | 2025-07-17 09:44 | XMS_ITS | Clinical Summary ---
Author Organization [facility] Address [address] [place] [address] Care Team Providers Care School Leader Name Role Phone Sacha Devine MD Primary Care Provider [phone] Source Comments [facility],non-owned Affiliates and Associated Physician Practices is amultiple site organization consisting of ambulatory clinics and hospital sitesin [place], [place], [place] and [place]. This disclosure is being madepursuant to the Care Everywhere program and may not contain all information available regarding this patient. Last updated 18.[facility] Allergies Active Allergy Reactions Criticality Noted Date Comments Ofloxacin Palpitations 03/01/2012 Latex Unknown 03/05/2021 Venlafaxine Shortness of Breath High 05/21/2021 Headaches Medications * Be aware that medications may not be up to date on this document. Alwaysverify current medications with the patient. atorvastatin (LIPITOR) 80 MG tablet Take 1 (one) tablet by mouth once daily 0 Active aspirin EC (ECOTRIN) 81 MG tablet Take 1 (one) tablet by mouth once daily Active furosemide (LASIX) 20 MG tablet Take 1 (one) tablet by mouth once daily 1 Active VASCEPA 1 g capsule Take 2 (two) capsules by mouth 2 times daily 1 Active levothyroxine (SYNTHROID) 25 MCG tablet Take 1 (one) tablet by mouth once daily Active nitroGLYCERIN (NITROSTAT) 0.4 MG tablet Dissolve 1 (one) tablet under the tongue 1 Active cetirizine (ZYRTEC) 10 MG tabletIndicati ons:Cysts of both ovaries Take 1 (one) tablet by mouth once daily Active fenofibrate (TRICOR) 145 MG tablet 1 Active lidocaine (UROJET) 2 % 2 % jelly 2 Active lisinopril (PRINIVIL; ZESTRIL) 2.5 MG tablet 2 Active Ozempic, 2 MG/DOSE, 8 MG/3ML pen Inject 2 (two) mg subcutaneously every 7 days 3 Active carvedilol (Coreg) 6.25 MG tablet Take 1 (one) tablet by mouth 2 times daily with morning and evening meal 3 Active Linzess 290 MCG capsule Take 1 (one) capsule by mouth once daily 3 Active tiZANidine (Zanaflex) 2 MG tablet Take 1 (one) tablet by mouth every 8 hours as needed for Muscle Spasms 20 tablet 3 3 Active nitrofurantoin monohyd macro crystals (Macrobid) 100 MG capsuleIndicat ions:Urinary Tract Infection Take 1 (one) capsule by mouth 2 times daily with morning and evening meal Reasons: Urinary Tract Infection 6 capsule 3 Active trimethoprim (Trimpex) 100 MG tablet TAKE 1 TABLET BY MOUTH EVERY DAY 30 tablet 5 5 Active Active Problems Problem Noted Date Diagnosed Date Post-op pain 02/15/2022 Nausea without vomiting 02/15/2022 Atrophy of kidney 07/12/2021 Hypothyroidism 10/29/2020 Overview (03/09/2022): Last Assessment & Plan: Continue levothyroxine Chest pain 10/19/2020 Old [place] (myocardial infarction) 05/06/2020 Fatigue 07/05/2016 Hyperlipidemia 07/05/2016 Overview (03/05/2021): Last Assessment & Plan: Continue statin. Vascepa non formulary and patient is not interested in [place] [address]. Hypertension 07/05/2016 Overview (03/05/2021): Last Assessment & Plan: Blood pressure is controlled at this time. Carvedilol and amlodipine have been resumed with hold parameters. Holding losartan due to acute kidney injury. Coronary atherosclerosis 07/05/2016 Overview (03/09/2022): Last Assessment & Plan: Patient having chest pressure currently. Improved with nitroglycerin but has worsened since nitroglycerin was removed. Will resume nitroglycerin paste. She is status post stents on 10/21. Continue aspirin and Brilinta. Continue carvedilol. Cardiology has been consulted, will await their evaluation. Abdominal pain, lower 04/03/2012 Dyspepsia 04/03/2012 Resolved Problems Problem Noted Date Diagnosed Date Resolved Date Constipation 02/15/2022 03/15/2022 Constipation 04/03/2012 04/02/2021 Family History Medical History Relation Name Comments CAD (Coronary Artery Disease) Father Diabetes - Type 2 Father Hypertension Father CAD (Coronary Artery Disease) Maternal Grandfather CVA Maternal Grandfather Diabetes - Type 2 Maternal Grandfather Hypertension Maternal Grandfather CAD (Coronary Artery Disease) Maternal Grandmother CVA Maternal Grandmother Cancer - Breast Maternal Grandmother Diabetes - Type 2 Maternal Grandmother Hypertension Maternal Grandmother Cancer - Breast Mother CAD (Coronary Artery Disease) Paternal Grandfather CVA Paternal Grandfather Diabetes - Type 2 Paternal Grandfather Hypertension Paternal Grandfather CAD (Coronary Artery Disease) Paternal Grandmother CVA Paternal Grandmother Diabetes - Type 2 Paternal Grandmother Hypertension Paternal Grandmother Relation Name Status Comments Father Maternal Grandfather Maternal Grandmother Mother Paternal Grandfather Paternal Grandmother Social History Tobacco Use Types Packs/Day Years Used Date Smoking Tobacco: Never Smokeless Tobacco: Never Tobacco Cessation:Counseling Given: Not Answered Alcohol Use Standard Drinks/Week Comments No 0 (1 standard drink = 0.6 oz pur e alcohol) AUDIT-C Answer Date Recorded Q1: How often do you have a drink containing alcohol? Never 02/20/2023 Q2: How many drinks containi ng alcohol do you have on a typical day when you are drinking? Patient does not drink Q3: How often do you have si x or more drinks on one occasion? Never 02/20/2023 PHQ-2 Answer Date Recorded PHQ2 TOTAL SCORE 0 03/09/2023 Hunger Vital Sign Answer Date Recorded Within the past 12 months, y ou worried that your food would run out before you got the money to buy more. Never true 02/18/20 22 Within the past 12 months, t he food you bought just didn't last and you didn't have money to get more. Never true 02/17/2022 Comments No Sex and Gender Information Value Date Recorded Sex Assigned at Female 05/31/2021 8:27 AM CDT Legal Sex Female 6:13 AM MACHINE I COREMAKER Gender Identity Female 05/31/2021 8:27 AM CDT Sexual Orientation Not on file Last Filed Vital Signs Vital Sign Reading Time Taken Comments Blood Pressure 110/70 03/09/2023 8:51 AM CDT Pulse 68 02/20/2023 5:01 PM CDT Temperature 36.2 C (97.2 F) 02/20/2023 4:42 PM CDT Respiratory Rate 18 02/20/2023 5:37 PM CDT Oxygen Saturation 99% 02/20/2023 5:37 PM CDT Inhaled Oxygen Concentration - - Weight 67.6 kg (149 lb) 03/09/2023 8:51 AM CDT Height 154.9 cm (5' 1) 03/09/2023 8:51 AM CDT Body Mass Index 28.15 03/09/2023 8:51 AM CDT Plan of Treatment Health Maintenance Due Date Last Done Comments COLOGUARD (AGES 45-75) - COLON CA SCREENING 1972 COLON MONITORING 1972 COLONOSCOPY - COLON CA SCREENING 1972 CT COLONOGRAPHY - COLON CA SCREENING 1972 FIT - COLON CA SCREENING 1972 MAMMOGRAM 1972 HIV SCREENING 1987 HEPATITIS C SCREENING 11/03/1990 DTAP/TDAP/TD VACCINES (1 - Tdap) 1991 HEPATITIS B VACCINE (1 of 3 - 19+ 3-dose series) 1991 Colorectal Cancer Screening 03/01/2017 FLEX SIG - COLON CA SCREENING 03/01/2017 03/01/2012 PNEUMOCOCCAL VACCINE 50+ (1 of 1 - PCV) 2022 ZOSTER VACCINE (1 of 2) 2022 DEPRESSION SCREENING 09/11/2024 03/01/2023 COVID-19 VACCINE (3 - 2024- season) 2025 03/28/2021, 03/06/2021 INFLUENZA VACCINE (#1) 2025 SCREENING FOR DIABETES 02/20/2026 , 02/20/2023, 01/16/2023, Additional history exists HIB VACCINE Aged Out No longer eligi ble based on patient's age to complete this topic HPV VACCINE Aged Out No longer eligi ble based on patient's age to complete this topic MENINGOCOCCAL (Group B) VACCINE SHARED DECISION-MAKING Aged Out No longer eligible based on patient's age to complete this topic MENINGOCOCCAL GROUPS A/C/Y/W VACCINE Aged Out No longer eligible based on patient's age to complete this topic Procedures Procedure Name Priority Date/Time Associated Diagnosis Comments GLUCOSE - POINT OF CARE Routine 02/20/2023 4:43 PM CDT ENDOSCOPY, SIGMOID Routine 03/01/2012 10 :38 AM CDT from Last 3 Months or Most Recently Relevant to Health Maintenance Results * GLUCOSE - POINT OF CARE (02/20/2023 4:43 PM CDT) [facility] Glucose WB/POC 87 70 - 106 mg/dL 02/20/2023 4:53 PM CDT [facility] Specimen Type Venous 02/20/2023 4:53 PM CDT [facility] Blood BLOOD SPECIMEN / Unknown 02/20/2023 4:43 PM CDT 02/20/2023 4:53 PM CDT us James James MD LAB - POINT OF CARE ORDERABL ES Final Result Performing Organization Address City/[facility] Co de Phone Number [facility] [address] [place] [address] * ENDOSCOPY, SIGMOID (03/01/2012 10:38 AM CDT) Narrative Transcriptions Missy Suarez MD - 03/01/2012 10:38 AM CDT us Missy Suarez MD GI PROCEDURE ORDERABLES Fi nal Result Performing Organization Address [facility] Co de Phone Number [facility] ENDOSCOPY from Last 3 Months or Most Recently Relevant to Health Maintenance Insurance [employer] Advance Directives * Full Code (Latest Code Status on File) Date Activated Date Inactivated Comments 02/16/2022 12:10 AM 02/17/2022 5:41 PM Care Teams School Leader Relationship Specialty Start Date End Date Sacha Devine MD [address] [place] [id number] PCP - General Family Medicine 07/07/21
== END 2025-07-16 09:53 | disposition home or self-care (01) ==
LOC: ANHIMG 09:55
PROVIDERS: PCP Family Medicine; Visit Provider Nurse Practitioner Family
DX: E11.9 Type 2 diabetes mellitus without complications (principal); I25.10 Atherosclerotic heart disease of native coronary artery without angina pectoris; K21.9 Gastro-esophageal reflux disease without esophagitis; G47.33 Obstructive sleep apnea (adult) (pediatric); E55.9 Vitamin D deficiency, unspecified; N18.31 Chronic kidney disease, stage 3a; I10 Essential (primary) hypertension; E78.5 Hyperlipidemia, unspecified; K76.0 Fatty (change of) liver, not elsewhere classified; W19.XXXA Unspecified fall, initial encounter; M25.60 Stiffness of unspecified joint, not elsewhere classified; S69.90XA Unspecified injury of unspecified wrist, hand and finger(s), initial encounter; X58.XXXA Exposure to other specified factors, initial encounter; M19.041 Primary osteoarthritis, right hand
CPT/HCPCS: 36415; 73110; 73130; 80053; 80061; 82043; 82306; 82607; 84439; 84443; 85027

== ENCOUNTER 2025-08-26 11:23 | Outpatient (CLI) | payer OTHER, SELFPAY ==
--- NOTE | ~2025-08-26 | CT_ITS ---
EXAMINATION: CT abdomen pelvis w con DATE: 08/26/2025 12:04 INDICATION: Abdominal pain TECHNIQUE: Computed tomography (CT) of the abdomen and pelvis was performed with 100 mL Omnipaque-350 intravenous contrast. Automated exposure control and iterative reconstruction technique were employed. The dose-length product was 270.48 mGy-cm. COMPARISON: None FINDINGS: Cluster of small nodules/nodular consolidation at the anterior segment of the right upper lobe along the minor fissure, the largest measuring 1.5 cm diameter and 8 mm in thickness and which are suspicious for pneumonia. Heart size is normal. No pericardial or pleural effusion. There is dilation of the common bile duct to 10 mm in maximal diameter which tapers distally without evident obstructing distal stone or mass and likely sequela of prior cholecystectomy. Liver is normal with no intrahepatic biliary ductal dilation. Spleen, pancreas and bilateral adrenal glands are normal. Severe left renal atrophy. Small region of mild cortical scarring at the upper pole the right kidney likely sequela prior infection or infarction. Status post appendectomy with suture line along the tip the cecum. No bowel obstruction. The uterus and left ovary are not identified and have likely been surgically resected. Suggestion of an approximately 2 cm low-attenuation cyst in the right ovary. Bladder is normal. No free intraperitoneal gas or fluid. No pathologically enlarged abdominal or pelvic lymphadenopathy. Mild thoracic and lumbar spondylosis with bridging osteophytes at multiple levels consistent with diffuse idiopathic skeletal hyperostosis (DISH). IMPRESSION: 1. Cluster of nodule/nodular consolidation at the anterior segment of the right upper lobe more concerning for infection than malignancy. Consider 3 month follow-up low-dose noncontrast chest CT. 2. Dilation of the common bile duct to 10 mm without intrahepatic biliary ductal dilation or evident obstructing stone or mass likely related to prior cholecystectomy. Correlate with liver function tests and if clinically indicated could consider MRCP for further evaluation. 3. Severe left renal atrophy. Reviewed, dictated and finalized at location A. SSING TOOLSETTER IMPRESSION: 1. Cluster of nodule/nodular consolidation at the anterior segment of the right upper lobe more concerning for infection than malignancy. Consider 3 month fol low-up low-dose noncontrast chest CT. 2. Dilation of the common bile duct to 10 mm without intrahepatic biliary ducta l dilation or evident obstructing stone or mass likely related to prior cholecy stectomy. Correlate with liver function tests and if clinically indicated could consider MRCP for further evaluation. 3. Severe left renal atrophy.
[2025-08-26 11:57] LABS: Estimated Glomerular Filt Rate 32
[2025-08-26 12:58] LABS: Hematocrit 42.3 % (37.0-47.0); Hemoglobin 13.3 g/dL (12.0-15.0); Immature Granulocyte Percent A 0.4 % (0-0.5); Lymphocytes Absolute Auto 1.92 K/mm3 (0.9-3.2); Mean Corpuscular HGB Conc 31.4 g/dl (32-36); Mean Corpuscular Hemoglobin 29.2 pg (26-34); Mean Corpuscular Volume 93.0 fl (80-100); Nucleated Red Blood Cells Absolute Auto 0.000 K/mm3 (0.0-0.012); Nucleated Red Blood Cells Perc 0.0 % (0.0-0.2); Platelet Count Result 184 k/mm3 (150-375); Red Blood Count 4.55 M/mm3 (4.2-5.4); White Blood Count 7.3 K/mm3 (4.5-10.0)
[2025-08-26 13:02] LABS: Anion Gap 11 mmol/L (4-12); Blood Urea Nitrogen 23 mg/dL (7-17); Calcium 9.9 mg/dL (8.4-10.2); Carbon Dioxide 21 mmol/L (22-30); Chloride 104 mmol/L (98-107); Estimated Glomerular Filt Rate 34; Glucose 87 mg/dL (65-110); Lipase 211 U/L (23-300); Potassium 4.3 mmol/L (3.4-5.0); Sodium 136 mmol/L (137-145)
--- OUTSIDE RECORDS SUMMARY | 2025-08-26 13:47 | XMS_ITS | Clinical Summary ---
Author Organization [facility] Address [address] [place] [address] Care Team Providers Care Train Crew Member Name Role Phone Sacha Devine MD Primary Care Provider [phone] Source Comments [facility],non-owned Affiliates and Associated Physician Practices is amultiple site organization consisting of ambulatory clinics and hospital sitesin [place], [place], [place] and [place]. This disclosure is being madepursuant to the Care Everywhere program and may not contain all information available regarding this patient. Last updated 18.[facility] Allergies Active Allergy Reactions Criticality Noted Date [...] Plan: Continue levothyroxine Chest pain 10/19/2020 Old [place] (myocardial infarction) 05/06/2020 Fatigue 07/05/2016 Hyperlipidemia 07/05/2016 Overview (03/05/2021): Last Assessment & Plan: Continue statin. Vascepa non formulary and patient is not interested in [place] [address]. Hypertension 07/05/2016 Overview (03/05/2021): Last [...] AM CDT Legal Sex Female 6:13 AM SALES COMMISSIONS ANALYST Gender Identity Female 05/31/2021 8:27 AM CDT [...] POINT OF CARE (02/20/2023 4:43 PM CDT) [facility] Glucose WB/POC 87 70 - 106 mg/dL 02/20/2023 4:53 PM CDT [facility] Specimen Type Venous 02/20/2023 4:53 PM CDT [facility] Blood BLOOD SPECIMEN / Unknown 02/20/2023 4:43 PM CDT 02/20/2023 4:53 PM CDT us James James MD LAB - POINT OF CARE ORDERABL ES Final Result Performing Organization Address City/[facility] Co de Phone Number [facility] [address] [place] [address] * ENDOSCOPY, SIGMOID (03/01/2012 10:38 AM CDT) Narrative Transcriptions Missy Suarez MD - 03/01/2012 10:38 AM CDT us Missy Suarez MD GI PROCEDURE ORDERABLES Fi nal Result Performing Organization Address City/[facility] Co de Phone Number [facility] ENDOSCOPY from Last 3 Months or Most Recently Relevant to Health Maintenance Insurance [employer] Advance Directives * Full Code (Latest Code Status on File) Date Activated Date Inactivated Comments 02/16/2022 12:10 AM 02/17/2022 5:41 PM Care Teams Train Crew Member Relationship Specialty Start Date End Date Sacha Devine MD [address] [place] [id number] PCP - General Family Medicine 07/07/21
--- OUTSIDE RECORDS SUMMARY | 2025-08-26 13:47 | XMS_ITS ---
Care Plan Created on: August 26, 2025 Lilly Salmeron : 1970 Sex: Female Author Organization [facility] Address [address] [place] [address] Care Team Providers Care Underwater Hunter Name Role Phone Jovan Eddy MD Unavailable [phone] Sacha Devine MD Primary Care Provider [phone] Leatha Epstein MD Unavailable [phone] Gonzales Hudson MD Unavailable [phone] Leilani Soto RN Unavailable [phone] Active Problems Problem Noted Date Diagnosed Date Chest pain with moderate risk for cardiac etiolo gy 08/23/2025 Assessment & Plan (08/24/2025 8:18 AM CARE COMPANION): In the ED she got a CT CAP, CX, RPP all without significant findings. Her trops were wnl at <4 and her EKGs are without ST elevations. She got 1 L LR and her pain improved with morphine. Vitals were initially significant for tachycardia which resolved with fluids. Given negative cardiac, GI, and pulmonary workup, and pain described as shooting with paresthesia favoring radiculopathy - symptomatic management with tylenol and lido patches - trop trend - BID lytes - EKG and trops for worsening CP Assessment & Plan (08/23/2025 8:01 PM CARE COMPANION): In the ED she got a CT CAP, CX, RPP all without significant findings. Her trops were wnl at <4 and her EKGs are without ST elevations. She got 1 L LR and her pain improved with morphine. Vitals were initially significant for tachycardia which resolved with fluids. Given negative cardiac, GI, and pulmonary workup, and pain described as shooting with paresthesia favoring radiculopathy - symptomatic management with tylenol and lido patches - trop trend - BID lytes - EKG and trops for worsening CP Chronic UTI 08/23/2025 Assessment & Plan (08/24/2025 8:18 AM CARE COMPANION): - BL Cr ~1.5, 1.57 on presentation; hx recurrent UTIs (requiring hospitalization per pt) started on proph trimethoprim - got 1L LR in ED will repeat BMP tonight - home trimethoprim 100 mg daily Assessment & Plan (08/23/2025 8:01 PM CARE COMPANION): - BL Cr ~1.5, 1.57 on presentation; hx recurrent UTIs (requiring hospitalization per pt) started on proph trimethoprim - got 1L LR in ED will repeat BMP tonight - home trimethoprim 100 mg daily CKD (chronic kidney disease) stage 3, GFR 30-59 ml/min 08/23/2025 Assessment & Plan (08/24/2025 8:18 AM CARE COMPANION): - BL Cr ~1.5, 1.57 on presentation; hx recurrent UTIs (requiring hospitalization per pt) started on proph trimethoprim - got 1L LR in ED will repeat BMP tonight - home trimethoprim 100 mg daily Assessment & Plan (08/23/2025 8:01 PM CARE COMPANION): - BL Cr ~1.5, 1.57 on presentation; hx recurrent UTIs (requiring hospitalization per pt) started on proph trimethoprim - got 1L LR in ED will repeat BMP tonight - home trimethoprim 100 mg daily RUQ pain 04/14/2025 Assessment & Plan (04/14/2025 9:09 AM CDT): Complains of on and off abdominal pain. Advice to follow-up with gastroenterology for further evaluation and management. Atrial contractions, premature 08/26/2024 Assessment & Plan (08/26/2024 9:47 AM CARE COMPANION): Not bothersome. Coreg, counseled on lifestyle modifications. Check TSH and electrolytes. Type 2 diabetes mellitus wit h hyperglycemia, with long-term current use of insulin 06/12/2024 Type 2 diabetes mellitus wit h chronic kidney disease, with long-term current use of insulin 03/02/2024 Assessment & Plan (08/24/2025 8:18 AM CARE COMPANION): - A1c 12/5 5.8% - On monjaro at home - Home meal time insulin 2 units humalog for BG every 50 above 150, has not needed to use any in months - SSI while IP Assessment & Plan (08/23/2025 8:01 PM CARE COMPANION): - A1c 12/5 5.8% - On monjaro at home - Home meal time insulin 2 units humalog for BG every 50 above 150, has not needed to use any in months - SSI while IP Assessment & Plan (04/14/2025 9:05 AM CDT): [...] 10/29/2020 Assessment & Plan (10/29/2020 12:31 AM CARE COMPANION): Patient did not have a syncopal episode. [...] on tele. Hypothyroid 10/29/2020 Assessment & Plan (08/24/2025 8:18 AM CARE COMPANION): - home synthroid 25 mcg Assessment & Plan (08/23/2025 8:01 PM CARE COMPANION): - home synthroid 25 mcg Assessment & Plan (04/14/2025 9:04 AM CDT): Clinically and biochemically euthyroid. Continue levothyroxine 25 mcg daily. Assessment & Plan (04/08/2024 8:37 AM CDT): Recent TSH level is normal. Continue levothyroxine 25 mcg daily. Assessment & Plan (03/08/2024 2:49 PM CDT): Recent TSH level is normal. Continue levothyroxine 25 mcg daily. Assessment & Plan (10/29/2020 12:12 AM CARE COMPANION): Continue levothyroxine CAD (coronary artery disease) 10/28/2020 Assessment & Plan (08/24/2025 8:18 AM CARE COMPANION): CAD (LAD PCI 2020) w/ mild restenosis noted 02/01; 01/2024 TTE LVEF 55-60% w/ uncategorized diastolic dysfunction 01/2024 [facility] Mild ISR in the LAD stent Mild to moderate nonobstructive disease in the right coronary, circumflex, and high obtuse marginal branch which is unchanged from prior - home aspirin 81, atorvastatin 80 mg - home home zetia 10 mg, home tricor 145 mg daily, omega3 2 capsules BID - home lasix 20 mg PO daily Assessment & Plan (08/23/2025 8:01 PM CARE COMPANION): CAD (LAD PCI 2020) w/ mild restenosis noted 02/01; 01/2024 TTE LVEF 55-60% w/ uncategorized diastolic dysfunction 01/2024 [facility] Mild ISR in the LAD stent Mild to moderate nonobstructive disease in the right coronary, circumflex, and high obtuse marginal branch which is unchanged from prior - home aspirin 81, atorvastatin 80 mg - home home zetia 10 mg, home tricor 145 mg daily, omega3 2 capsules BID - home lasix 20 mg PO daily Assessment & Plan (10/29/2020 12:15 AM CARE COMPANION): Patient having chest pressure currently. Improved with nitroglycerin but has worsened since nitroglycerin was removed. Will resume nitroglycerin paste. She is status post stents on 10/21. Continue aspirin and Brilinta. Continue carvedilol. Cardiology has been consulted, will await their evaluation. Chest pain 10/19/2020 Old ID (myocardial infarction) 05/06/2020 Fatigue 07/05/2016 Hyperlipidemia 07/05/2016 Assessment & Plan (08/24/2025 8:18 AM CARE COMPANION): CAD (LAD PCI 2020) w/ mild restenosis noted 02/01; 01/2024 TTE LVEF 55-60% w/ uncategorized diastolic dysfunction 01/2024 [facility] Mild ISR in the LAD stent Mild to moderate nonobstructive disease in the right coronary, circumflex, and high obtuse marginal branch which is unchanged from prior - home aspirin 81, atorvastatin 80 mg - home home zetia 10 mg, home tricor 145 mg daily, omega3 2 capsules BID - home lasix 20 mg PO daily Assessment & Plan (08/23/2025 8:01 PM CARE COMPANION): CAD (LAD PCI 2020) w/ mild restenosis noted 02/01; 01/2024 TTE LVEF 55-60% w/ uncategorized diastolic dysfunction 01/2024 [facility] Mild ISR in the LAD stent Mild to moderate nonobstructive disease in the right coronary, circumflex, and high obtuse marginal branch which is unchanged from prior - home aspirin 81, atorvastatin 80 mg - home home zetia 10 mg, home tricor 145 mg daily, omega3 2 capsules BID - home lasix 20 mg PO daily Assessment & Plan (04/14/2025 9:03 AM CDT): Continue fenofibrate, Zetia and atorvastatin. Assessment & Plan (08/26/2024 9:46 AM CARE COMPANION): See CAD. Assessment & Plan (04/08/2024 8:37 AM CDT): Continue fenofibrate, Zetia and atorvastatin. Assessment & Plan (03/08/2024 2:50 PM CDT): Continue fenofibrate, Zetia and atorvastatin. Assessment & Plan (02/26/2024 10:05 AM CDT): See CAD. Assessment & Plan (10/29/2020 12:33 AM CARE COMPANION): Continue statin. Vascepa non formulary and patient is not interested in [place] 3 interchange. Abnormal glucose level 07/05/2016 Coronary artery disease invo lving [place] coronary artery of [place] heart without angina pectoris 07/05/2016 Assessment & Plan (08/26/2024 9:46 AM CARE COMPANION): Improved, [facility] with PCI in 2014 and . [facility] with mild ISR 01/2024. Denies Angina today in clinic. ASA and statin. Coreg 6.25 mg BID, Farxiga 5 mg daily, Zetia 10 mg daily, tricor 145 mg daily, vescepa 1 gram daily and Lipitor 80 mg daily-LDL December. Assessment & Plan (02/26/2024 10:08 AM CDT): Improved, [facility] with PCI in 2014 and . [facility] with mild ISR 01/2024. Denies Angina today in clinic. No longer taking Imdur. Struggling with Hyperglycemia-she will reach out to endocrine for additional recs when she leaves today. ASA and statin. Coreg 6.25 mg BID, Farxiga 5 mg daily, Zetia 10 mg daily, tricor 145 mg daily, vescepa 1 gram daily and Lipitor 80 mg daily-LDL 61 daily. Hypertension 07/05/2016 Assessment & Plan (08/24/2025 8:18 AM CARE COMPANION): - home coreg 6.25 jonnathan Assessment & Plan (08/23/2025 8:01 PM CARE COMPANION): - home coreg 6.25 jonnathan Assessment & Plan (04/14/2025 9:04 AM CDT): Continue Coreg. Assessment & Plan (04/08/2024 8:38 AM CDT): Continue Coreg. Assessment & Plan (03/08/2024 2:50 PM CDT): Continue Coreg. Assessment & Plan (10/29/2020 12:13 AM CARE COMPANION): Blood pressure is controlled at this time. Carvedilol and amlodipine have been resumed with hold parameters. Holding losartan due to acute kidney injury. Kidney disease Additional Health Concerns Active Problems Noted Date Diagnosed Date Initial Follow-Up Appointment 08/25/2025 Goals Goal Patient Goal Type Associated Problems Recent Progress Patient-Stated? Author Patient will have kept initial appointment and will show signs of improvement to baseline Care Plan Initial Follow-Up Appointment Leilani Rubi, RN Interventions Care Plan Interventions Intervention Entry Date Outcome Follow up with patient 2 days after Post Hospital Visit office visit to ensure understanding of changes and follow-up plan 08/25/2025 Coordinate with patient/caregiver(s) to ensure patient is able to keep scheduled appointment 08/25/2025 Address any barriers for keeping scheduled appointment 08/25/2025 Discuss with patient/ caregiver plan for transportation to appointment 08/25/2025 Ensure Pt has follow-up scheduled within 7 days of discharge 08/25/2025 Related Goals and Interventions Goal Associated Intervent ions Patient will have kept initi al appointment and will show signs of improvement to baseline Follow up with patient 2 days after Post Hospital Visit office visit to ensure understanding of changes and follow-up plan; Coordinate with patient/caregiver(s) to ensure patient is able to keep scheduled appointment; Address any barriers for keeping scheduled appointment; Discuss with patient/ caregiver plan for transportation to appointment; Ensure Pt has follow-up scheduled within 7 days of discharge
--- OUTSIDE RECORDS SUMMARY | 2025-08-26 13:47 | XMS_ITS | Clinical Summary ---
Author Organization [facility] Address [address] [place] [id number] Phone Care Team Providers Care Catalog Specialist Name Role Phone Sacha Devine MD Primary Care Provider [phone] Allergies Active Allergy Reactions Criticality Noted Date [...] meals 06/09/20 21 Active Cobalamin Combinations (Vitamin L51-Krswr Acid) 500-400 MCG tablet Take 1 tablet by mouth daily Active cetirizine (ZyrTEC) 10 MG tablet Take 10 mg by mouth daily Active ergocalciferol (VITAMIN D-2) 1.25 MG (33751 UT) capsule TK ONE C PO Q [...] formulary and patient is not interested in [place] [address] interchange. Last Assessment & Plan: Continue statin. Vascepa non formulary and patient is not interested in [place] interchange. Hypertension 07/05/2016 Overview (07/12/2021): Last [...] Comments Blood Pressure 134/72 08/24/2022 8:50 AM MEDICAL RECEPTION SPECIALIST Pulse - - Temperature 36.8 C (98.2 F) 08/24/2022 8:50 AM MEDICAL RECEPTION SPECIALIST Respiratory Rate 18 08/24/2022 8:50 AM MEDICAL RECEPTION SPECIALIST Oxygen Saturation - - Inhaled Oxygen Concentration - - Weight 70.3 kg (155 lb) 08/24/2022 8:50 AM MEDICAL RECEPTION SPECIALIST Height 165.1 cm (5' 5) 08/24/2022 8:50 AM MEDICAL RECEPTION SPECIALIST Body Mass Index 25.79 08/24/2022 8:50 AM MEDICAL RECEPTION SPECIALIST Plan of Treatment Health Maintenance Due Date Last Done Comments Influenza Vaccine (#1) 2025 Insurance [employer] Care Teams Catalog Specialist Relationship Specialty Start Date End Date Sacha Devine MD PCP - General Family Medicine 06/29/21
--- OUTSIDE RECORDS SUMMARY | 2025-08-26 13:47 | XMS_ITS | Clinical Summary ---
Author Organization [employer] Alyssaashley castillo [facility] Address [address] [place] [address] Care Team Providers Care Barrel Lathe Operator Inside Name Role Phone Unavailable Primary Care Provider [...]
--- OUTSIDE RECORDS SUMMARY | 2025-08-26 13:47 | XMS_ITS | Clinical Summary ---
Author Organization [facility] Address [address] [place] [address] Care Team Providers Care Silk Screen Printer Helper Name Role Phone Jovan Eddy MD Unavailable [phone] Sacha Devine MD Primary Care Provider [phone] Leatha Epstein MD Unavailable [phone] Gonzales Hudson MD Unavailable [phone] Leilani Soto RN Unavailable [phone] Allergies Active Allergy Reactions Criticality Noted Date Comments Influenza Virus Vaccines Vomiting Low 10/28/2020 Hospitalized after receiving vaccine Latex Ofloxacin Shortness of breath,Palpitations, Swelling High 03/01/2012 Rash, SOB. Couldn't breath Venlafaxine Other (See comments),Shortness of breath High 05/21/2021 Headaches Headaches Medications aspirin 81 mg tablet Take 1 tablet (81 mg total) by mouth daily Active levothyroxine (SYNTHROID) 25 mcg tablet Take 1 tablet (25 mcg total) by mouth security researcher before breakfast Active cetirizine (ZyrTEC) 10 mg tablet Take 1 tablet (10 mg total) by mouth daily Active blood-glucose meter kit Please use according to the directions on the package. 1 kit 022 Active trimethoprim (TRIMPEX) 100 mg tablet Take 1 tablet (100 mg total) by mouth daily 022 Active magnesium hydroxide (MILK OF MAGNESIA) suspension 400 mg/5 mL Take 30 mL by mouth daily 118 mL 1 023 Active Additional Information Patient taking differently:30 mL oralAs needed, Reported on 04/03/2025 cholecalciferol (VITAMIN D-3) 50,000 unit capsule Take 1 capsule (50,000 Units total) by mouth once a week No certain day of the week Active atorvastatin (LIPITOR) 80 mg tablet Take 1 tablet (80 mg total) by mouth daily Active nitroglycerin (NITROSTAT) 0.[address] 1 tablet (0.4 mg total) under the tongue every 5 (five) minutes as needed for chest pain Active OneTouch Ultra Test strip Onetouch ultra 2 strips 4 times daily. 400 strip 3 024 Active lancets 33 gauge misc Check blood sugar 4 times daily. 400 each 3 024 Active pen needle, diabetic 32 gauge x 5/32 needle Use with insulin 5 times daily. 500 each 3 024 Active tirzepatide (Mounjaro) 12.5 mg/0.5 mL pen injector injection Inject 0.5 mL (12.5 mg total) under the skin every 7 days Active fenofibrate nanocrystallized (TRICOR) 145 mg tablet TAKE 1 TABLET BY MOUTH EVERY DAY 90 tablet 3 025 Active carvediloL (COREG) 6.25 mg tablet TAKE 1 TABLET BY MOUTH TWICE A DAY WITH MEALS 180 tablet 3 025 Active Senexon-S 8.6-50 mg TAKE 2 TABLETS BY MOUTH NIGHTLY NEEDED FOR CONSTIPATION. 60 tablet 11 025 Active furosemide (LASIX) 20 mg tablet TAKE 1 TABLET BY MOUTH EVERY DAY 90 tablet 3 025 Active Dexcom G7 Sensor deviceIndications:T ype 2 diabetes mellitus with hyperglycemia, with long-term current use of insulin (HCC) CHANGE EVERY 10 DAYS. Type 2 diabetes mellitus with hyperglycemia , with long-term current use of insulin E11.65, Z79.4 9 each 1 025 Active ezetimibe (ZETIA) 10 mg tablet TAKE 1 TABLET BY MOUTH EVERY DAY 90 tablet 2 025 Active insulin lispro (HumaLOG) 100 unit/mL pen for injectionIndication s:Type 2 diabetes mellitus with hyperglycemia, with long-term current use of insulin (HCC) Inject per sliding scale before meals. Maximum daily dose 30 units. 025 Active omega-3 fatty acids-fish oil 300-1,000 mg capsule Take 2 capsules (2 g total) by mouth 2 (two) times a day Active Vascepa 1 gram capsule Take 2 capsules (2 g total) by mouth 2 (two) times a day 020 2024 Discontinued(A lternate therapy) insulin lispro (HumaLOG) 100 unit/mL pen for injectionIndication s:Type 2 diabetes mellitus with hyperglycemia, with long-term current use of insulin (HCC) Inject 10 units before meals 3 x daily plus sliding scale before meals. Maximum daily dose 45 units. 30 mL 1 024 2024 Discontinued ezetimibe (ZETIA) 10 mg tablet TAKE 1 TABLET BY MOUTH EVERY DAY 90 tablet 2 025 2024 Discontinued Active Problems Problem Noted Date Diagnosed Date Chest pain with moderate risk for cardiac etiolo gy 08/23/2025 Assessment & Plan (08/24/2025 8:18 AM REGISTRATION REPRESENTATIVE): In the ED she got a CT [...] CP Assessment & Plan (08/23/2025 8:01 PM REGISTRATION REPRESENTATIVE): In the ED she got a CT [...] 08/23/2025 Assessment & Plan (08/24/2025 8:18 AM REGISTRATION REPRESENTATIVE): - BL Cr ~1.5, 1.57 on presentation; hx recurrent UTIs (requiring hospitalization per pt) started on proph trimethoprim - got 1L LR in ED will repeat BMP tonight - home trimethoprim 100 mg daily Assessment & Plan (08/23/2025 8:01 PM REGISTRATION REPRESENTATIVE): - BL Cr ~1.5, 1.57 on presentation; hx recurrent UTIs (requiring hospitalization per pt) started on proph trimethoprim - got 1L LR in ED will repeat BMP tonight - home trimethoprim 100 mg daily CKD (chronic kidney disease) stage 3, GFR 30-59 ml/min 08/23/2025 Assessment & Plan (08/24/2025 8:18 AM REGISTRATION REPRESENTATIVE): - BL Cr ~1.5, 1.57 on presentation; hx recurrent UTIs (requiring hospitalization per pt) started on proph trimethoprim - got 1L LR in ED will repeat BMP tonight - home trimethoprim 100 mg daily Assessment & Plan (08/23/2025 8:01 PM REGISTRATION REPRESENTATIVE): - BL Cr ~1.5, 1.57 on presentation; [...] 08/26/2024 Assessment & Plan (08/26/2024 9:47 AM REGISTRATION REPRESENTATIVE): Not bothersome. Coreg, counseled on lifestyle modifications. Check TSH and electrolytes. Type 2 diabetes mellitus wit h hyperglycemia, with long-term current use of insulin 06/12/2024 Type 2 diabetes mellitus wit h chronic kidney disease, with long-term current use of insulin 03/02/2024 Assessment & Plan (08/24/2025 8:18 AM REGISTRATION REPRESENTATIVE): - A1c 12/5 5.8% - On monjaro at home - Home meal time insulin 2 units humalog for BG every 50 above 150, has not needed to use any in months - SSI while IP Assessment & Plan (08/23/2025 8:01 PM REGISTRATION REPRESENTATIVE): - A1c 12/5 5.8% - On monjaro [...] 10/29/2020 Assessment & Plan (10/29/2020 12:31 AM REGISTRATION REPRESENTATIVE): Patient did not have a syncopal episode. [...] 10/29/2020 Assessment & Plan (08/24/2025 8:18 AM REGISTRATION REPRESENTATIVE): - home synthroid 25 mcg Assessment & Plan (08/23/2025 8:01 PM REGISTRATION REPRESENTATIVE): - home synthroid 25 mcg Assessment & Plan (04/14/2025 9:04 AM CDT): Clinically and biochemically euthyroid. Continue levothyroxine 25 mcg daily. Assessment & Plan (04/08/2024 8:37 AM CDT): Recent TSH level is normal. Continue levothyroxine 25 mcg daily. Assessment & Plan (03/08/2024 2:49 PM CDT): Recent TSH level is normal. Continue levothyroxine 25 mcg daily. Assessment & Plan (10/29/2020 12:12 AM REGISTRATION REPRESENTATIVE): Continue levothyroxine CAD (coronary artery disease) 10/28/2020 Assessment & Plan (08/24/2025 8:18 AM REGISTRATION REPRESENTATIVE): CAD (LAD PCI 2020) w/ mild restenosis [...] daily Assessment & Plan (08/23/2025 8:01 PM REGISTRATION REPRESENTATIVE): CAD (LAD PCI 2020) w/ mild restenosis [...] daily Assessment & Plan (10/29/2020 12:15 AM REGISTRATION REPRESENTATIVE): Patient having chest pressure currently. Improved with nitroglycerin but has worsened since nitroglycerin was removed. Will resume nitroglycerin paste. She is status post stents on 10/21. Continue aspirin and Brilinta. Continue carvedilol. Cardiology has been consulted, will await their evaluation. Chest pain 10/19/2020 [place] (myocardial infarction) 05/06/2020 Fatigue 07/05/2016 Hyperlipidemia 07/05/2016 Assessment & Plan (08/24/2025 8:18 AM REGISTRATION REPRESENTATIVE): CAD (LAD PCI 2020) w/ mild restenosis [...] daily Assessment & Plan (08/23/2025 8:01 PM REGISTRATION REPRESENTATIVE): CAD (LAD PCI 2020) w/ mild restenosis noted 02/01; 01/2024 TTE LVEF 55-60% w/ uncategorized diastolic dysfunction 01/2024 [facility] Mild ISR in the LAD stent Mild [...] atorvastatin. Assessment & Plan (08/26/2024 9:46 AM REGISTRATION REPRESENTATIVE): See CAD. Assessment & Plan (04/08/2024 8:37 AM CDT): Continue fenofibrate, Zetia and atorvastatin. Assessment & Plan (03/08/2024 2:50 PM CDT): Continue fenofibrate, Zetia and atorvastatin. Assessment & Plan (02/26/2024 10:05 AM CDT): See CAD. Assessment & Plan (10/29/2020 12:33 AM REGISTRATION REPRESENTATIVE): Continue statin. Vascepa non formulary and patient is not interested in [place] [address]. Abnormal glucose level 07/05/2016 Coronary artery disease invo lving alatna coronary artery of [place] heart without angina pectoris 07/05/2016 Assessment & Plan (08/26/2024 9:46 AM REGISTRATION REPRESENTATIVE): Improved, [facility] with PCI in 2014 and . [facility] with mild ISR 01/2024. Denies Angina today in clinic. ASA and statin. Coreg 6.25 mg BID, Farxiga 5 mg daily, Zetia 10 mg daily, tricor 145 mg daily, vescepa 1 gram daily and Lipitor 80 mg daily-LDL December. Assessment & Plan (02/26/2024 10:08 AM CDT): Improved, [facility] with PCI in 2014 and . [facility] with mild ISR 01/2024. Denies Angina today [...] 07/05/2016 Assessment & Plan (08/24/2025 8:18 AM REGISTRATION REPRESENTATIVE): - home coreg 6.25 jonnathan Assessment & Plan (08/23/2025 8:01 PM REGISTRATION REPRESENTATIVE): - home coreg 6.25 jonnathan Assessment & Plan (04/14/2025 9:04 AM CDT): Continue Coreg. Assessment & Plan (04/08/2024 8:38 AM CDT): Continue Coreg. Assessment & Plan (03/08/2024 2:50 PM CDT): Continue Coreg. Assessment & Plan (10/29/2020 12:13 AM REGISTRATION REPRESENTATIVE): Blood pressure is controlled at this time. Carvedilol and amlodipine have been resumed with hold parameters. Holding losartan due to acute kidney injury. Kidney disease Encounters Date Type Department Care Team Description 08/26/2025 [facility]reach [facility] [address] [phone] Leilani Soto, RAMOS 08/25/2025 [facility] [address] [phone] Leilani Soto, RAMOS 08/25/2025 [facility] Initial Eligibility Review [facility] [address] [phone] Leilani Soto, RAMOS 08/23/2025 4:51 AM REGISTRATION REPRESENTATIVE - 08/24/2025 12:47 PM REGISTRATION REPRESENTATIVE Hospital Encounter [facility] [address] [place] [address] Ricardo Youngblood MD Johnson, MD Karen Guillermo, MD Rashad Chu, Mary Pinedo MD Chest pain with moderate risk for cardiac etiology (Primary Dx) Discharge Disposition: Discharge to home or self care 08/15/2025 8:00 AM REGISTRATION REPRESENTATIVE Office Visit [facility]ology at [facility] [address] [place] [phone] Lyssa Mahmood MD Type 2 diabetes mellitus with hyperglycemia, with long-term current use of insulin (HCC) (Primary Dx); Acquired hypothyroidism from Last 3 Months Immunizations Immunization Administration Dates Next Due Sars-CoV-2, [...] making you feel afraid or unsafe? Denies 08/23/2025 Comments No Sex and Gender Information Value Date Recorded Sex Assigned at Not on file Legal Sex Female 3:56 AM REGISTRATION REPRESENTATIVE Gender Identity Female 11/02/2020 12:59 PM REGISTRATION REPRESENTATIVE Sexual Orientation Straight 11/02/2020 12 :59 PM REGISTRATION REPRESENTATIVE Last Filed Vital Signs Vital Sign Reading Time Taken Comments Blood Pressure 123/68 08/24/2025 7:11 AM REGISTRATION REPRESENTATIVE RA, MAP 85 Pulse 74 08/24/2025 7:11 AM REGISTRATION REPRESENTATIVE Temperature 36.8 C (98.3 F) 08/24/2025 7:11 AM REGISTRATION REPRESENTATIVE Respiratory Rate 11 08/24/2025 7:11 AM REGISTRATION REPRESENTATIVE Oxygen Saturation 98% 08/24/2025 7:1 1 AM REGISTRATION REPRESENTATIVE Inhaled Oxygen Concentration - - Weight 64.2 kg (141 lb 9.6 oz) 08/24/20 6:20 AM REGISTRATION REPRESENTATIVE Height 154.9 cm (5' 1) 08/23/2025 2:00 PM REGISTRATION REPRESENTATIVE Body Mass Index 26.76 08/23/2025 2:00 PM REGISTRATION REPRESENTATIVE Plan of Treatment Health Maintenance Due Date Last Done Comments Breast Cancer Screening-Mammogram 1972 Colon Cancer Screening-Colonoscopy 1972 Depression Screening 1972 Hepatitis C Screening 1972 DTaP/Tdap/Td Vaccine (1 - Tdap) 1983 Hepatitis B Screening 1990 Regular Well Visit/Exam 18-64 1990 Pneumococcal vaccine <65 (2 of 2 - PCV) 11/04/2022 11/04/2021 Zoster Vaccine (1 of 2) 2022 Lipid Panel 01/01/2025 01/02/2024, 08/12, 08/10/2021, Additional history exists Albumin Creatinine Ratio, Urine 04/04/2025 Covid-19 Vaccine (4 - 2024-2 6 season) 2025 03/28/2021, 03/06/2021, 12/18/2020 Influenza Vaccine (#1) 2025 Dilated Eye Exam 07/01/2025 07/01/2024, 04/23/2024 Hemoglobin A1C 02/13/2026 08/15/2025, 08/0 12/2024, 12/13/2024, Additional history exists Foot Exam 04/14/2026 04/14/2025, 06/12/2024 eGFR 08/23/2026 08/23/2025, 08/11, 12/13/2024, Additional history exists Goals Goal Patient Goal Type Associated Problems Recent Progress Patient-Stated? Author Patient will have kept initial appointment and will show signs of improvement to baseline Care Plan Initial Follow-Up Appointment Leilani Rubi RN Medical Devices Implanted Type Area Criminal Intelligence Analyst Device Identifier Shelf Expiration Date Model / Serial / Lot Daig Stefany/[employer] [id number] Angio-Seal Evolution 6fr .035in Guidewire Bypass Tube Suture - [id number] - [id number] Implanted:Qty : 1 on 10/21/2020 by Mabel Lauren MD at [facility] Collagen [employer] Stefany 07/11/2021 [id number] / [id number] / [id number] [employer] Stefany Angio-Seal Vip 6fr Closere Device [id number] - [id number] - [id number] Implanted:Qty : 1 on 01/22/2024 by Shady Sandoval MD at [facility] Collagen Right: Femoral [employer] Stefany 10/11/2024 [id number] / [id number] / [id number] [employer] [id number] Stent Coronary Drug Eluting Orsiro 3.0mm 35cm - [id number] - [id number] Implanted:Qty : 1 on 10/21/2020 by Mabel Lauren MD at [facility] Stent [employer] 04/22/2021 [id number] / [id number] / [id number] Stent Heart Procedures Procedure Name Priority Date/Time Associated Diagnosis Comments POCT GLUCOSE DEVICE Routine 08/24/2025 11:40 AM REGISTRATION REPRESENTATIVE POCT GLUCOSE DEVICE Routine 08/24/2025 7 :14 AM REGISTRATION REPRESENTATIVE THYROID FUNCTION CASCADE Routine 08/24/2025 6:16 AM REGISTRATION REPRESENTATIVE EGFR Routine 08/23/2025 8:45 PM REGISTRATION REPRESENTATIVE MAGNESIUM Routine 08/23/2025 8:45 PM REGISTRATION REPRESENTATIVE CBC WITHOUT DIFFERENTIAL Routine 08/23/2025 8:45 PM REGISTRATION REPRESENTATIVE BASIC METABOLIC PANEL Routine 08/23/2025 8:45 PM REGISTRATION REPRESENTATIVE POCT GLUCOSE DEVICE Routine 08/23/2025 8 :21 PM REGISTRATION REPRESENTATIVE ECG 12-LEAD Routine 08/23/2025 3:20 PM REGISTRATION REPRESENTATIVE TROPONIN I HIGH-SENSITIVITY 2-HOUR Timed 08/23/2025 1:08 PM REGISTRATION REPRESENTATIVE POCT GLUCOSE DEVICE Routine 08/23/2025 12:44 PM REGISTRATION REPRESENTATIVE TROPONIN I HIGH-SENSITIVITY SERIES (BASELINE, 2HR, 4HR, 6HR) Timed 08/23/2025 10:15 AM REGISTRATION REPRESENTATIVE ECG 12-LEAD Routine 08/23/2025 9:54 AM REGISTRATION REPRESENTATIVE CTA CHEST ABDOMEN PELVIS ED Urgent/IP Urgent 08/23/2025 8:25 AM REGISTRATION REPRESENTATIVE TROPONIN I HIGH-SENSITIVITY 2-HOUR Timed 08/23/2025 5:43 AM REGISTRATION REPRESENTATIVE RESPIRATORY PATHOGEN PANEL STAT 08/23/2025 5:43 AM REGISTRATION REPRESENTATIVE D-DIMER, QUANTITATIVE STAT 08/23/2025 5:16 AM REGISTRATION REPRESENTATIVE XR CHEST PA LATERAL 2 VIEWS ED 08/23/2025 5:01 AM REGISTRATION REPRESENTATIVE POCT GLUCOSE DEVICE Routine 08/23/2025 3 :57 AM REGISTRATION REPRESENTATIVE PRO B-TYPE NATRIURETIC PEPTIDE STAT 08/23/2025 3:56 AM REGISTRATION REPRESENTATIVE EGFR STAT 08/23/2025 3:56 AM REGISTRATION REPRESENTATIVE DIFFERENTIAL AUTO STAT 08/23/2025 3:5 6 AM REGISTRATION REPRESENTATIVE TROPONIN I HIGH-SENSITIVITY SERIES (BASELINE, 2HR, 4HR, 6HR) STAT 08/23/2025 3:56 AM REGISTRATION REPRESENTATIVE COMPREHENSIVE METABOLIC PANEL STAT 08/23/2025 3:56 AM REGISTRATION REPRESENTATIVE CBC WITH AUTO DIFFERENTIAL STAT 08/23/2025 3:56 AM REGISTRATION REPRESENTATIVE ECG 12-LEAD STAT 08/23/2025 3:50 AM REGISTRATION REPRESENTATIVE POCT HEMOGLOBIN A1C Routine 08/15/2025 8 :56 AM REGISTRATION REPRESENTATIVE Type 2 diabetes mellitus with hyperglycemia, with long-term current use of insulin (HCC) DIABETIC EYE EXAM Routine 07/01/2024 4:0 2 PM CDT ALBUMIN CREATININE RATIO, URINE Routine 04/04/2024 10:06 AM CDT Type 2 diabetes mellitus with stage 3a chronic kidney disease, with long-term current use of insulin (HCC) LIPID PANEL Routine 01/02/2024 8:39 AM CDT Hyperlipidemia, unspecified hyperlipidemia type Coronary artery disease involving [place] coronary artery of [place] heart without angina pectoris Coronary artery disease involving [place] heart with angina pectoris, unspecified vessel or lesion type Medication course changed from Last 3 Months or Most Recently Relevant to Health Maintenance Results * POCT glucose (08/24/2025 11:40 AM REGISTRATION REPRESENTATIVE) Glucose, POC 93 70 - 199 mg/dL Blood 08/24/2025 11:4 0 AM REGISTRATION REPRESENTATIVE 08/24/2025 11:40 AM REGISTRATION REPRESENTATIVE us Mary Solorzano MD LAB POCT ORDERABLES - DEVIC E Final Result Performing Organization Address City/[facility] Co de Phone Number [facility] [place] [address] * POCT glucose (08/24/2025 7:14 AM REGISTRATION REPRESENTATIVE) [facility] Glucose, POC 79 70 - 199 mg/dL Blood 08/24/2025 7:14 AM REGISTRATION REPRESENTATIVE 08/24/2025 7:14 AM REGISTRATION REPRESENTATIVE us Mary Solorzano MD LAB POCT ORDERABLES - DEVIC E Final Result Performing Organization Address [facility] Co de Phone Number [facility] Department [place] [address] * Thyroid Function [place] (08/24/2025 6:16 AM REGISTRATION REPRESENTATIVE) [facility] TSH 1.52 0.30 - 4.20 mcIUnit/mL Blood 08/24/2025 6:16 AM REGISTRATION REPRESENTATIVE 08/24/2025 7:10 AM REGISTRATION REPRESENTATIVE us Sundeep Jones MD LAB BLOOD ORDERABLES Enid l Result Performing Organization Address [facility] Co de Phone Number [facility] Department [place] [address] * (ABNORMAL) eGFR (08/23/2025 8:45 PM REGISTRATION REPRESENTATIVE) [facility] eGFR 45(L) >=60 mL/min/1. 73 m2 Comment: Interpretive Data [...] Inclusion of Race in Diagnosing Kidney Disease, TIFFANYSRuthie 2020). The CKD-EPI equation should not be used for patients with unstable renal function and has not been validated in children and those over 70. Current interpretive data was last reviewed 2021. Blood 08/23/2025 8:45 PM REGISTRATION REPRESENTATIVE 08/23/2025 9:02 PM REGISTRATION REPRESENTATIVE us Sundeep Jones MD LAB BLOOD ORDERABLES Enid l Result [facility] Department [place] [address] * (ABNORMAL) CBC without differential (08/23/2025 8:45 PM REGISTRATION REPRESENTATIVE) WBC 7.11 3.80 - 9.90 K/cumm Hgb 11.4(L) 11.9 - 15.5 g/dL [facility] Hct 35.3(L) 35.6 - 45.5 % [facility] Plt 137(L) 150 - 400 K/cumm [facility] MPV 11.9 9.1 - 12.3 fL [facility] RBC 3.97 3.90 - 5.20 M/cumm [facility] MCV 88.9 81.3 - 96.4 fL [facility] MCH 28.7 27.1 - 33.3 pg [facility] MCHC 32.3 32.3 - 35.7 g/dL [facility] RDW CV 13.8 11.1 - 14.9 % [facility] RDW SD 44.9 35.7 - 48.1 fL [facility] NRBC abs 0.00 0.00 - 0.01 K/cumm [facility] Blood 08/23/2025 8:45 PM REGISTRATION REPRESENTATIVE 08/23/2025 9:03 PM REGISTRATION REPRESENTATIVE us Sundeep Jones MD LAB BLOOD ORDERABLES Enid l Result [facility] Department [place] [address] * Magnesium (08/23/2025 8:45 PM REGISTRATION REPRESENTATIVE) [facility] Magnesium 2.0 1.4 - 2.5 mg/dL Blood 08/23/2025 8:45 PM REGISTRATION REPRESENTATIVE 08/23/2025 9:02 PM REGISTRATION REPRESENTATIVE Sundeep Jones MD LAB BLOOD ORDERABLES Enid l Result Performing Organization Address [facility] Co de Phone Number [facility] [place] [address] * (ABNORMAL) Basic metabolic panel (08/23/2025 8:45 PM REGISTRATION REPRESENTATIVE) [facility] Sodium 140 135 - 145 mmol/L Potassium, pl 3.8 3.3 - 4.9 mmol/L [facility] Chloride 106 97 - 110 mmol/L [facility] CO2 23 22 - 32 mmol/L [facility] Anion gap 11 2 - 15 mmol/L [facility] BUN 12 6 - 25 mg/dL [facility] Creatinine 1.41(H) 0.60 - 1.10 mg/dL [facility] Glucose 113 70 - 199 mg/dL [facility] Comment: Interpretive Data Fasting glucose >/= 126 mg/dl is diagnostic for diabetes. Fasting is defined as no caloric intake for at least 8 hours. Fasting glucose between 100 mg/dl to 125 mg/dl is diagnostic of prediabetes. In a patient with classic symptoms of hyperglycemia or hyperglycemic crisis, a random glucose >/= 200 mg/dl is diagnostic for diabetes. In the absence of unequivocal hyperglycemia, results should be confirmed by repeat testing. The classification and Diagnosis of Diabetes Diabetes Care 202; 46: S19-S40. Current interpretive data was last revised 2022. Calcium 9.3 8.5 - 10.3 mg/dL [facility] Blood 08/23/2025 8:45 PM REGISTRATION REPRESENTATIVE 08/23/2025 9:02 PM REGISTRATION REPRESENTATIVE us Sundeep Jones MD LAB BLOOD ORDERABLES Enid l Result Performing Organization Address City/[facility]/ZIP Co de Phone Number [facility] [place] [address] * POCT glucose (08/23/2025 8:21 PM REGISTRATION REPRESENTATIVE) Pathologist [facility] Glucose, POC 122 70 - 199 mg/dL Blood 08/23/2025 8:21 PM REGISTRATION REPRESENTATIVE 08/23/2025 8:21 PM REGISTRATION REPRESENTATIVE us Sundeep Jones MD LAB POCT ORDERABLES - DEV ICE Final Result Performing Organization Address [facility] Co de Phone Number [facility] [place] [address] * ECG 12 lead (08/23/2025 3:20 PM REGISTRATION REPRESENTATIVE) [facility] Ventricular Rate EKG/Min 84 BPM [facility] Atrial Rate 84 BPM [facility] ID-Interval (MSEC) 178 ms [facility] QRS-Interval (MSEC) 66 ms [facility] QT-Interval (MSEC) 348 ms [facility] QTc 411 ms [facility] P [place] 37 degrees [facility] R [place] 24 degrees [facility] T [place] 33 degrees [facility] Diagnosis Normal sinus rhythm Normal ECG Confirmed by Elias SCHULER, [facility] ([id number]) on 08/25/2025 8:27:17 AM [facility] 08/23/2025 3:20 PM REGISTRATION REPRESENTATIVE 08/25/2025 8:27 AM REGISTRATION REPRESENTATIVE us Sundeep Jonse MD ECG ORDERABLES Final Res ult Performing Organization Address [facility] Co de Phone Number [facility] * Troponin I high-sensitivity 2-hour (08/23/2025 1:08 PM REGISTRATION REPRESENTATIVE) Pathologist [facility] Trop I hs <4 <=17 ng/L Comment: Interpretive Data For further hscTnI resources including the diagnostic algorithm and an aid in interpretation, copy and paste this link: [email or web address] Current Interpretive Data last revised 2020. Trop I hs delta 0 ng/L [facility] Trop I hs interp Insignificant [facility] Blood 08/23/2025 1:08 PM REGISTRATION REPRESENTATIVE 08/23/2025 1:41 PM REGISTRATION REPRESENTATIVE Hernan Martin MD LAB BLOOD ORDERABLES F inal Result Performing Organization Address [facility] [facility]/ZIP Co de Phone Number [facility] Department [place] [address] * POCT glucose (08/23/2025 12:44 PM REGISTRATION REPRESENTATIVE) Glucose, POC 86 70 - 199 mg/dL Blood 08/23/2025 12:4 4 PM REGISTRATION REPRESENTATIVE 08/23/2025 12:44 PM REGISTRATION REPRESENTATIVE Result [facility] Sundeep Jones MD LAB POCT ORDERABLES - DEV ICE Final Result Performing Organization Address [facility] Co de Phone Number [facility] Department [place] [address] * Troponin I high-sensitivity series (baseline, 2hr, 4hr, 6hr) (08/23/2025 10:15 AM REGISTRATION REPRESENTATIVE) Trop I hs 4 <=17 ng/L Comment: Interpretive Data For further hscTnI resources including the diagnostic algorithm and an aid in interpretation, copy and paste this link: [email or web address]/show/[email or web address] Current Interpretive Data last revised 2020. Blood 08/23/2025 10:1 5 AM REGISTRATION REPRESENTATIVE 08/23/2025 10:40 AM REGISTRATION REPRESENTATIVE us Hernan Martin MD LAB BLOOD ORDERABLES F inal Result Performing Organization Address [facility] Co de Phone Number [facility] Department [place] [address] * (ABNORMAL) ECG 12-LEAD (08/23/2025 9:54 AM REGISTRATION REPRESENTATIVE) Narrative [facility] - 08/23/2025 9:54 AM REGISTRATION REPRESENTATIVE Hernan Martin MD 08/23/2025 9:54 AM ECG 12 lead Date/Time: 08/23/2025 9:54 AM Performed by: Hernan Martin MD Authorized by: Hernan Martin MD Rate: ECG rate: 82 ECG rate assessment: normal Rhythm: Rhythm: sinus rhythm Ectopy: Ectopy: none QRS: QRS axis: Normal QRS intervals: Normal Conduction: Conduction: normal ST segments: ST segments: Normal T waves: T waves: normal Q waves: Q waves: III, aVF, V1, V2 and V3 Previous ECG: Previous ECG: Unavailable Interpretation: Interpretation: abnormal Recommended Follow-up: Recommended follow up: further workup in the ED us Hernan Martin MD ECG ORDERABLES Final Result Performing Organization Address [facility] de Phone Number [facility] * CTA Chest Abdomen Pelvis (08/23/2025 8:25 AM REGISTRATION REPRESENTATIVE) Anatomical Region Laterality Modality Body N/A Computed Tomogra phy 08/23/2025 9:10 AM REGISTRATION REPRESENTATIVE Impressions 08/23/2025 3:24 PM REGISTRATION REPRESENTATIVE No evidence of acute aortic syndrome or dissection. Dictated by: Imelda Sandoval M.D. The radiology attending physician has personally reviewed this study, and had reviewed and/or edited this written report and agrees with it. Electronically signed by: Ralf Mabry M.D. Narrative 08/23/2025 3:24 PM REGISTRATION REPRESENTATIVE EXAMINATION: CT ANGIOGRAPHY OF THE CHEST, ABDOMEN AND PELVIS WITH AND WITHOUT CONTRAST HISTORY: 54-year-old female presenting with chest pain radiating to the back TECHNIQUE: Computed tomographic images of the chest, abdomen and pelvis were acquired without and with intravenous contrast using an angiographic protocol optimized for aortic dissection (aorta). The contrast enhanced transaxial images were obtained following the intravenous administration of 94 ml of nonionic contrast. Multiplanar reformatted images and three-dimensional images of the aorta and associated vasculature were obtained on the 3-D workstation and sent to the PACS archival system. COMPARISON: 09/04/2023 and 10/19/2020 FINDINGS: Chest: No evidence of acute aortic syndrome. The thoracic aorta and pulmonary artery are of normal size. No cardiomegaly or pericardial effusion. Apical thinning is noted of the left ventricle. Coronary artery atherosclerotic calcifications noted. No pneumothorax, suspicious pulmonary nodules, pleural effusion, pneumonia, or pulmonary edema. The course and caliber of the esophagus is normal. No supraclavicular, mediastinal, hilar, axillary lymphadenopathy. Abdomen/Pelvis: The liver is normal. The gallbladder is absent. No intrahepatic biliary ductal dilation. Stable dilation of the common bile duct likely due to reservoir effect. The pancreas and the spleen are normal. The adrenals are normal. There is severe atrophy of the left kidney which is unchanged. There is cortical thinning and scarring of the right kidney. Right renal cysts present. The urinary bladder is normal. The stomach is normal. The small and large bowel of normal course and caliber. The appendix is normal. No intraperitoneal free air or fluid. The uterus is surgically absent. The portal, splenic, and superior mesenteric veins are patent. The visceral arteries are patent. The abdominal aorta is of normal course and caliber. No suspicious osseous lesions. Procedure Note Ralf Mabry MD PhD - 08/23/2025 EXAMINATION: CT ANGIOGRAPHY OF THE CHEST, ABDOMEN AND PELVIS WITH AND WITHOUT CONTRAST HISTORY: 54-year-old female presenting with chest pain radiating to the back TECHNIQUE: Computed tomographic images of the chest, abdomen and pelvis were acquired without and with intravenous contrast using an angiographic protocol optimized for aortic dissection (aorta). The contrast enhanced transaxial images were obtained following the intravenous administration of 94 ml of nonionic contrast. Multiplanar reformatted images and three-dimensional images of the aorta and associated vasculature were obtained on the 3-D workstation and sent to the [employer] archival system. COMPARISON: 09/04/2023 and 10/19/2020 FINDINGS: Chest: No evidence of acute aortic syndrome. The thoracic aorta and pulmonary artery are of normal size. No cardiomegaly or pericardial effusion. Apical thinning is noted of the left ventricle. Coronary artery atherosclerotic calcifications noted. No pneumothorax, suspicious pulmonary nodules, pleural effusion, pneumonia, or pulmonary edema. The course and caliber of the esophagus is normal. No supraclavicular, mediastinal, hilar, axillary lymphadenopathy. Abdomen/Pelvis: The liver is normal. The gallbladder is absent. No intrahepatic biliary ductal dilation. Stable dilation of the common bile duct likely due to reservoir effect. The pancreas and the spleen are normal. The adrenals are normal. There is severe atrophy of the left kidney which is unchanged. There is cortical thinning and scarring of the right kidney. Right renal cysts present. The urinary bladder is normal. The stomach is normal. The small and large bowel of normal course and caliber. The appendix is normal. No intraperitoneal free air or fluid. The uterus is surgically absent. The portal, splenic, and superior mesenteric veins are patent. The visceral arteries are patent. The abdominal aorta is of normal course and caliber. No suspicious osseous lesions. IMPRESSION: No evidence of acute aortic syndrome or dissection. Dictated by: Imelda Sandoval M.D. The radiology attending physician has personally reviewed this study, and had reviewed and/or edited this written report and agrees with it. Electronically signed by: Ralf Mabry M.D. us Matthew Owens MD IMG CT PROCEDURES Fin al Result * Troponin I high-sensitivity 2-hour (08/23/2025 5:43 AM REGISTRATION REPRESENTATIVE) Trop I hs 4 <=17 ng/L Comment: Interpretive Data For further hscTnI resources including the diagnostic algorithm and an aid in interpretation, copy and paste this link: [email or web address].testcatalog.org/show/[email or web address] Current Interpretive Data last revised 2020. Trop I hs delta 0 ng/L [facility] Trop I hs interp Insignificant [facility] Blood 08/23/2025 5:43 AM REGISTRATION REPRESENTATIVE 08/23/2025 6:08 AM REGISTRATION REPRESENTATIVE us Chuckie Gary MD LAB BLOOD ORDERABLES Fi nal Result [facility] Department [place] [address] * Respiratory pathogen panel Nasopharyngeal (08/23/2025 5:43 AM REGISTRATION REPRESENTATIVE) [facility] Influenza A RNA Not Detected Not Detected Influenza B RNA Not Detected Not Detected [facility] RSV RNA Not Detected Not Detected [facility] COVID-19 RNA Not Detected Not Detected [facility] Coronavirus 229E RNA Not Detected Not Detected [facility] Coronavirus HKU1 RNA Not Detected Not Detected [facility] Coronavirus NL63 RNA Not Detected Not Detected [facility] Coronavirus OC43 RNA Not Detected Not Detected [facility] Adenovirus DNA Not Detected Not Detected [facility] Metapneumovirus RNA Not Detected Not Detected [facility] Rhinovirus/Enterov irus RNA Not Detected Not Detected [facility] Parainfluenza 1 RNA Not Detected Not Detected [facility] Parainfluenza 2 RNA Not Detected Not Detected [facility] Parainfluenza 3 RNA Not Detected Not Detected [facility] Parainfluenza 4 RNA Not Detected Not Detected [facility] B. pertussis DNA Not Detected Not Detected [facility] B. parapertussis DNA Not Detected Not Detected [facility] C. pneumoniae DNA Not Detected Not Detected [facility] M. pneumoniae DNA Not Detected Not Detected [facility] Nasopharyngeal 08/23/2025 5: 43 AM REGISTRATION REPRESENTATIVE 08/23/2025 5:57 AM REGISTRATION REPRESENTATIVE Narrative [facility] - 08/23/2025 6:50 AM REGISTRATION REPRESENTATIVE Is the Patient experiencing symptoms consistent with COVID?->Yes Surveillance testing for transplant patient?->No Interpretive Data The [employer] FilmArray Respiratory Panel (RP2.1) assay is a multiplexed real-time PCR based nucleic acid test capable of simultaneous qualitative detection and identification of multiple respiratory viral and bacterial nucleic acids, including SARS Coronavirus 2 (the causative agent of COVID-19). The following bacteria, viruses and virus subtypes can be identified using the FilmArray RP2.1 assay: Bordetella pertussis, Bordetella parapertussis, Chlamydia pneumoniae, Mycoplasma pneumoniae, Adenovirus, SARS Coronavirus 2, seasonal coronaviruses (Coronavirus HKU1, Coronavirus NL63, Coronavirus 229E, and Coronavirus OC43), Influenza A, Influenza A subtype H1, Influenza A subtype H3, Influenza A subtype 2009 H1, Influenza B, Metapneumovirus, Parainfluenza 1, Parainfluenza 2, Parainfluenza 3, Parainfluenza 4, RSV, Rhinovirus/Enterovirus. Due to the genetic similarity between human Rhinovirus and Enterovirus, the FilmArray RP2.1 assay cannot reliably differentiate them. Coronavirus OC43 may cross-react with some isolates of Coronavirus HKU1. A dual positive result may be due to cross-reactivity or may indicate a co- infection. The detection and identification of specific viral and bacterial nucleic acids from individuals exhibiting signs and symptoms of a respiratory infection aids in the diagnosis of respiratory infection if used in conjunction with other clinical and epidemiological information. The results of this test should not be used as the sole basis for diagnosis, treatment, or other management decisions. Negative results in the setting of a respiratory illness may be due to infection with pathogens that are not detected by this test. Positive results do not rule out infection/co-infection with other organisms. The agent(s) detected by the FilmArray RP2.1 may not be the definite cause of disease. Additional testing (lab, imaging, etc.) may be necessary when evaluating a patient with possible respiratory tract infection. The FilmArray RP2.1 assay has FDA clearance for testing of [employer] swabs. The performance of additional specimen types has been assessed by the performing laboratory. The performance characteristics of this assay have been determined by [facility] Molecular Infectious Disease [facility]. Current interpretive data was last revised on 22. Matthew Owens MD LAB MICROBIOLOGY - [facility] ORDERABLES Final Result [facility] Department [place] [address] * D-dimer, quantitative (08/23/2025 5:16 AM REGISTRATION REPRESENTATIVE) D-Dimer 339 <=499 ng/mL FEU Comment: Interpretive data FDA approved the D-dimer, in conjunction with a low or moderate pretest probability score, to exclude venous thromboembolic events (VTE) (PE and DVT) in outpatients when the D-dimer result is < 500 ng/ml FEU. Evidence supports using an age-adjusted D-dimer cut-off for outpatients older than 50 (age x 10) to improve specificity without sacrificing sensitivity. Example: age 68, VTE cut-off 680 ng/ml FEU. References; Jolynn TONG et al. Brit Med J. 2013;346:f2492. Cathy et al. Annals Int Med. 2015;163:701-11. Current interpretive data was last revised on 2019. Blood 08/23/2025 5:16 AM REGISTRATION REPRESENTATIVE 08/23/2025 5:30 AM REGISTRATION REPRESENTATIVE us Matthew Owens MD LAB BLOOD ORDERABLES Final Result [facility] Department [place] [address] * XR Chest PA Lateral 2 Views (If patient hemodynamically stable and ambulatory) (08/23/2025 5:01 AM REGISTRATION REPRESENTATIVE) Anatomical Region Laterality Modality Body, Chest N/A Computed Radiogr aphy 08/23/2025 5:03 AM REGISTRATION REPRESENTATIVE Impressions 08/23/2025 11:32 AM REGISTRATION REPRESENTATIVE Comparison is made to radiograph dated 01/20/2024. No pulmonary consolidation. No pleural effusion or pneumothorax. Stable cardiomediastinal silhouette. Coronary vascular stent. Dictated by: Elier Cuevas MD The radiology attending physician has personally reviewed this study, and had reviewed and/or edited this written report and agrees with it. Electronically signed by: Ralf Mabry M.D. Narrative 08/23/2025 11:32 AM REGISTRATION REPRESENTATIVE EXAMINATION: 2 view chest radiograph Procedure Note Ralf Mabry MD PhD - 08/23/2025 EXAMINATION: 2 view chest radiograph IMPRESSION: Comparison is made to radiograph dated 01/20/2024. No pulmonary consolidation. No pleural effusion or pneumothorax. Stable cardiomediastinal silhouette. Coronary vascular stent. Dictated by: Elier Cuevas MD The radiology attending physician has personally reviewed this study, and had reviewed and/or edited this written report and agrees with it. Electronically signed by: Ralf Mabry M.D. Ricardo Youngblood MD IMG XR PROCEDURES Final Re sult * POCT glucose (08/23/2025 3:57 AM REGISTRATION REPRESENTATIVE) [facility] Glucose, POC 143 70 - 199 mg/dL Blood 08/23/2025 3:57 AM REGISTRATION REPRESENTATIVE 08/23/2025 3:57 AM REGISTRATION REPRESENTATIVE Notinfile Unknown LAB POCT ORDERABLES - DEVICE F inal Result Performing Organization Address [facility] Co de Phone Number [facility] Department [place] [address] * Troponin I high-sensitivity series (baseline, 2hr, 4hr, 6hr) (08/23/2025 3:56 AM REGISTRATION REPRESENTATIVE) [facility] Trop I hs <4 <=17 ng/L Comment: Interpretive Data For further hscTnI resources including the diagnostic algorithm and an aid in interpretation, copy and paste this link: https://bjhlab.testcatalog.org/show/hsTrop-[email or web address] Current Interpretive Data last revised 2020. Blood 08/23/2025 3:56 AM REGISTRATION REPRESENTATIVE 08/23/2025 4:10 AM REGISTRATION REPRESENTATIVE Ricardo Youngblood MD LAB BLOOD ORDERABLES Final Result Performing Organization Address City/[facility]/ZIP Co de Phone Number [facility] Department [place] [address] * (ABNORMAL) eGFR (08/23/2025 3:56 AM REGISTRATION REPRESENTATIVE) [facility] eGFR 39(L) >=60 mL/min/1. 73 m2 Comment: Interpretive Data [...] of Race in Diagnosing Kidney Disease, JASN 202). The CKD-EPI equation should not be used for patients with unstable renal function and has not been validated in children and those over 70. Current interpretive data was last reviewed 2021. Blood 08/23/2025 3:56 AM REGISTRATION REPRESENTATIVE 08/23/2025 4:10 AM REGISTRATION REPRESENTATIVE us Ricardo Youngblood MD LAB BLOOD ORDERABLES Final Result [facility] Department [place] [address] * (ABNORMAL) Differential, auto (08/23/2025 3:56 AM REGISTRATION REPRESENTATIVE) Neutrophil abs 9.21(H) 1.50 - 6.50 K/cumm Imm gran abs 0.03 0.00 - 0.10 K/cumm [facility] Lymphocyte abs 0.86 0.80 - 3.30 K/cumm [facility] Monocyte abs 0.66 0.20 - 0.80 K/cumm [facility] Eosinophil abs 0.10 0.00 - 0.50 K/cumm [facility] Basophil abs 0.03 0.00 - 0.10 K/cumm [facility] Neutrophil pct 84.5 % [facility] Comment: Interpretive Data Percent cell count reference ranges are not reported, since discordance with absolute values may lead to misinterpretation of CBC data. Current Interpretive Data was last revised on 2017. Imm gran pct 0.3 % [facility] Comment: Interpretive Data Percent cell count reference ranges are not reported, since discordance with absolute values may lead to misinterpretation of CBC data. Current Interpretive Data was last revised on 2017. Lymphocyte pct 7.9 % [facility] Comment: Interpretive Data Percent cell count reference ranges are not reported, since discordance with absolute values may lead to misinterpretation of CBC data. Current Interpretive Data was last revised on 2017. Monocyte pct 6.1 % [facility] Comment: Interpretive Data Percent cell count reference ranges are not reported, since discordance with absolute values may lead to misinterpretation of CBC data. Current Interpretive Data was last revised on 2017. Eosinophil pct 0.9 % [facility] Comment: Interpretive Data Percent cell count reference ranges are not reported, since discordance with absolute values may lead to misinterpretation of CBC data. Current Interpretive Data was last revised on 2017. Basophil pct 0.3 % [facility] Comment: Interpretive Data Percent cell count reference ranges are not reported, since discordance with absolute values may lead to misinterpretation of CBC data. Current Interpretive Data was last revised on 2017. Blood 08/23/2025 3:56 AM REGISTRATION REPRESENTATIVE 08/23/2025 4:10 AM REGISTRATION REPRESENTATIVE Ricardo Youngblood MD LAB BLOOD ORDERABLES Final Result [facility] Department [place] [address] * Pro B-type natriuretic peptide (08/23/2025 3:56 AM REGISTRATION REPRESENTATIVE) NT-proBNP 65 <=300 pg/mL Comment: [id number] Interpretive Comments: A. Dyspnea in Acute Care Setting All Ages: < 300 pg/ml, acute heart failure unlikely. < 50 yrs: 300 - 450 pg/ml, further investigation warranted. > 450 pg/ml, acute heart failure likely. 50 - 74 yrs: 300 - 900 pg/ml, further investigation warranted. > 900 pg/ml, acute heart failure likely . > or = 75 yrs: 450 - 1800 pg/ml, further investigation warranted. > 1800 pg/ml, acute heart failure likely. B. Non-acute Setting < 75 yrs < 125 pg/ml, rules out heart failure. > or = 125 pg/ml, further investigation warranted. > or = 75 yrs < 450 pg/ml, rules out heart failure. > or = 450 pg/ml, further investigation warranted. - Knowledge of each individual patient's NT-proBNP range may be more useful than using similar cut-points for every patient. Please note that marked elevations in NT-proBNP levels may be observed in state other than Left Ventricular Congestive Failure, including: acute coronary syndromes, right heart strain/failure (including pulmonary embolism and cor pulmonale), critical illness, renal failure, as well as advanced age. - References: 1. Melchor BRARERA et.al. Eur Heart J. 2006:27:330-337. 2. Herson RW, Davida JIMENEZ. J. AM Liliya Cardiol: Cardiovasc Imag. 2009;2: 216- 225. Interpretive Data Last Revised Date: 2018. Blood 08/23/2025 3:56 AM REGISTRATION REPRESENTATIVE 08/23/2025 4:10 AM REGISTRATION REPRESENTATIVE us Sundeep Jones MD LAB BLOOD ORDERABLES Enid l Result [facility] Department [place] [address] * (ABNORMAL) CBC with auto differential (08/23/2025 3:56 AM REGISTRATION REPRESENTATIVE) WBC 10.89(H) 3.80 - 9.90 K/cumm Hgb 13.0 11.9 - 15.5 g/dL [facility] Hct 39.7 35.6 - 45.5 % [facility] Plt 188 150 - 400 K/cumm [facility] MPV 12.6(H) 9.1 - 12.3 fL [facility] RBC 4.52 3.90 - 5.20 M/cumm [facility] MCV 87.8 81.3 - 96.4 fL [facility] MCH 28.8 27.1 - 33.3 pg [facility] MCHC 32.7 32.3 - 35.7 g/dL [facility] RDW CV 13.3 11.1 - 14.9 % [facility] RDW SD 42.8 35.7 - 48.1 fL [facility] NRBC abs 0.00 0.00 - 0.01 K/cumm [facility] Blood Venous blood specimen / Unknown 08/23/2025 3:56 AM REGISTRATION REPRESENTATIVE 08/23/2025 4:10 AM REGISTRATION REPRESENTATIVE Ricardo Youngblood MD LAB BLOOD ORDERABLES Final Result [facility] Department [place] [address] * (ABNORMAL) Comprehensive metabolic panel (08/23/2025 3:56 AM REGISTRATION REPRESENTATIVE) Sodium 139 135 - 145 mmol/L Potassium, pl 4.5 3.3 - 4.9 mmol/L [facility] Comment:Hemolyzed; Potassium value may be falsely elevated by as much as 0.6-1.0 mmol/L. Suggest redraw and reanalysis. Chloride 104 97 - 110 mmol/L [facility] CO2 22 22 - 32 mmol/L [facility] Anion gap 13 2 - 15 mmol/L [facility] BUN 18 6 - 25 mg/dL [facility] Creatinine 1.57(H) 0.60 - 1.10 mg/dL [facility] Glucose 150 70 - 199 mg/dL [facility] Comment: Interpretive Data Fasting glucose >/= 126 mg/dl is diagnostic for diabetes. Fasting is defined as no caloric intake for at least 8 hours. Fasting glucose between 100 mg/dl to 125 mg/dl is diagnostic of prediabetes. In a patient with classic symptoms of hyperglycemia or hyperglycemic crisis, a random glucose >/= 200 mg/dl is diagnostic for diabetes. In the absence of unequivocal hyperglycemia, results should be confirmed by repeat testing. The classification and Diagnosis of Diabetes Diabetes Care 202; 46: S19-S40. Current interpretive data was last revised 2022. Calcium 9.8 8.5 - 10.3 mg/dL [facility] Bilirubin, total 0.5 0.1 - 1.2 mg/dL [facility] Protein, pl 8.0 6.5 - 8.5 g/dL [facility] Albumin 4.4 3.5 - 5.0 g/dL [facility] Alk phos 77 40 - 130 Units/L [facility] ALT 31 7 - 45 Units/L [facility] AST 48(H) 10 - 45 Units/L [facility] Comment:Hemolyzed; result ma y be falsely elevated Blood 08/23/2025 3:56 AM REGISTRATION REPRESENTATIVE 08/23/2025 4:10 AM REGISTRATION REPRESENTATIVE us Ricardo Youngblood MD LAB BLOOD ORDERABLES Final Result Performing Organization Address City/[facility]/ZIP Co de Phone Number [facility] Department [place] [address] * (ABNORMAL) ECG 12-LEAD (08/23/2025 3:50 AM REGISTRATION REPRESENTATIVE) Narrative [facility] - 08/23/2025 3:50 AM REGISTRATION REPRESENTATIVE Ricardo Youngblood MD 08/23/2025 3:51 AM ECG 12 lead Date/Time: 08/23/2025 3:50 AM Performed by: Ricardo Youngblood MD Authorized by: Chuckie Gary MD Rate: ECG rate: 122 ECG rate assessment: tachycardic Rhythm: Rhythm: sinus tachycardia Ectopy: Ectopy: none QRS: QRS axis: Normal QRS intervals: Normal Conduction: Conduction: normal ST segments: ST segments: Normal T waves: T waves: normal Q waves: Q waves: V1 and V2 Previous ECG: Previous ECG: Compared to current Date of previous EC01/20/2024 Similarity: Changes noted Interpretation: Interpretation: abnormal Recommended Follow-up: Recommended follow up: cardiac workup and further workup in the ED us Ricardo Youngblood MD ECG ORDERABLES Final Resu lt [facility] * (ABNORMAL) POCT hemoglobin A1c (08/15/2025 8:56 AM REGISTRATION REPRESENTATIVE) Hemoglobin A1C, POC 5.8(A) 4.0 - 5.6 % Blood 08/15/2025 8:56 AM REGISTRATION REPRESENTATIVE Lyssa Mahmood MD POINT OF CARE TEST ORDERABLE S Final Result * Diabetic Eye Exam (07/01/2024 4:02 PM CDT) Historical Provider HEALTH MAINTENANCE Final Result * Albumin Creatinine Ratio, Urine (04/04/2024 10:06 AM CDT) Albumin Ur <12.0 mg/L Comment: Interpretive Data No reference range established. Current interpretive data was last revised 2019. Creatinine Ur 86.4 mg/dL [facility] Comment: Interpretive Data No reference range established. Current interpretive data was last revised 2019. Albumin Creatinine Ratio, Ur <14 1 - 29 mg/g [facility] Urine 04/04/2024 10:0 6 AM CDT 04/04/2024 10:11 AM CDT Anthony Goodrich NP LAB URINE ORDERABLES Final Result [facility] [address] Department [place] [address] * (ABNORMAL) Lipid panel (01/02/2024 8:39 AM [...] LDL-C. Perry NOONAN et al. EVARISTO. 2013;310(19): 1037-7826 (http://education.[facility].[employer]/faq/MYL641) Chol/HDL ratio 3.3 <5.0 (calc) [facility] [...] 01/03/2024 4:20 AM CDT FASTING:YES FASTING: YES us Gonzales Hudson MD LAB BLOOD ORDERABLES Final Re sult [facility] [address] [place] [address] from Last 3 Months or Most Recently Relevant to Health Maintenance Additional Health Concerns Active Problems Noted Date Diagnosed Date Initial Follow-Up Appointment 08/25/2025 Insurance [employer] ACCESS OOS Member Subscriber Plan / Payer (Ef fective 2018-Present) Name:Lilly Salmeron Relation to Subscriber:Self Name:Lilly Salmeron Payer ID:[id number] ([facility]) Type:[facility] Address: [facility] [id number] [address] OPEN ACCESS [facility] CHOICE PLUS [facility] CHOICE PLUS Advance Directives For more information, please contact: [phone] * Full Code (Latest Code Status on File) Date Activated Date Inactivated Comments 08/23/2025 2:53 PM 08/24/2025 4:52 PM * Full Code Date Activated Date Inactivated Comments 03/01/2024 11:44 PM 03/02/2024 7:08 PM * Full Code Date Activated Date Inactivated Comments 01/20/2024 7:43 AM 01/23/2024 8:33 PM * Full Code Date Activated Date Inactivated Comments 09/04/2023 3:24 PM 09/05/2023 6:22 PM * Full Code Date Activated Date Inactivated Comments 10/28/2020 2:02 PM 10/30/2020 9:36 PM Care Teams Silk Screen Printer Helper Relationship Specialty Start Date End Date Sacha Devine MD PCP - General Family Practice 01/27/22 Jovan Eddy MD Consulting Physician Nephrology 10/30/20 Leatha Epstein MD [address] [place] [address] Consulting Physician Gastroenterology 09/05/23 Gonzales Hudson MD [address] [facility] [address] [place] [address] Referring Physician Cardiology 01/23/24 Leilani Soto, RN [address] [facility] [address] [place] [address] SHOP Outpatient Jewelry Dipper 08/25/25
--- OUTSIDE RECORDS SUMMARY | 2025-08-26 13:47 | XMS_ITS | Encounter Summary ---
Author Organization [facility] Address [address] [place] [address] Care Team Providers Care Electrical Maintenance Man Name Role Phone Jovan Eddy MD Unavailable [phone] Sacha Devine MD Primary Care Provider [phone] Leatha Epstein MD Unavailable [phone] Gonzales Hudson MD Unavailable [phone] Leilani Soto RN Unavailable [phone] Reason for Visit * Reason Comments Unsuccessful Phone Call 1 Encounter Details Date Type Department Care Team (Late st Contact Info) Description 08/25/2025 SHOP/CHAP Initial Outreach [facility] [address] [facility] [phone] [place] [address] Leilani Soto, RN [address] [facility] [address] [place] [address] Social History Tobacco Use Types Packs/Day Years [...] on file 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 Author Patient will have kept initial appointment and will show signs of improvement to baseline Care Plan Initial Follow-Up Appointment No Leilani Soto RN documented as of this encounter Visit Diagnoses Not on filedocumented in this encounter Additional Health Concerns Active Problems Noted Date Diagnosed Date Initial Follow-Up Appointment 08/25/2025 documented as of this encounter Care Teams Electrical Maintenance Man Relationship Specialty Start Date End Date Sacha Devine MD PCP - General Family Practice 01/27/22 Jovan Eddy MD Consulting Physician Nephrology 10/30/20 Leatha Epstein MD [address] [address] Consulting Physician Gastroenterology 09/05/23 Gonzales Hudson MD [address] [facility] [address] [place] [address] Referring Physician Cardiology 01/23/24 Leilani Soto RN [address] [facility] [address] [place] [address] SHOP Outpatient Ergonomist 08/25/25 documented as of this encounter
--- OUTSIDE RECORDS SUMMARY | 2025-08-26 13:47 | XMS_ITS | Clinical Summary ---
Author Organization [facility] Address [address] [place] [address] Phone Care Team Providers Care Electron Beam Machine Welder Setter Name Role Phone Sacha Devine MD Primary Care Provider [phone] Karsten Malik MD Unavailable [phone] Yue Mcnulty APRN, ACCOUNTING DIRECTOR Unavailable + [phone] Allergies Active Allergy Reactions Criticality Noted Date [...] Comments Blood Pressure 136/94 10/26/2022 9:44 AM RADIO ANNOUNCER Pulse 83 10/26/2022 9:44 AM RADIO ANNOUNCER Temperature 36.3 C (97.3 F) 10/26/2022 9:44 AM RADIO ANNOUNCER Respiratory Rate 20 02/21/2022 9:17 AM CDT Oxygen Saturation 98% 10/26/2022 9:44 AM RADIO ANNOUNCER Inhaled Oxygen Concentration - - Weight 70.5 kg (155 lb 6.4 oz) 08/23/2022 9:44 A M RADIO ANNOUNCER Height 154.9 cm (5' 1) 02/21/2022 9:17 [...] Combined Discontinued 11/04/2021 Human Papillomavirus (HPV) Immunization (No Doses Required) Completed Meningococcal Immunization (ACWY) Aged Out No longer eligible based on patient's age to complete this topic Rotavirus Immunization Aged Out No lo nger eligible based on patient's age to complete this topic Insurance [facility] Care Teams Electron Beam Machine Welder Setter Relationship Specialty Start Date End Date Sacha Devine MD PCP - General Family Medicine 11/22/21 Karsten Malik MD [address] [place] [address] Consulting Physician Neurology 11/22/21 Yue Mcnulty APRN, ACCOUNTING DIRECTOR [address] [place] [address] Nurse Practitioner Advanced Practice Nurse 08/23/22
--- OUTSIDE RECORDS SUMMARY | 2025-08-26 13:47 | XMS_ITS | Encounter Summary ---
Author Organization [facility] Address [address] [place] [address] Care Team Providers Care Foreclosure Clerk Name Role Phone Jovan Eddy MD Unavailable [phone] Sacha Devine MD Primary Care Provider [phone] Leatha Epstein MD Unavailable [phone] Gonzales Hudson MD Unavailable [phone] Leilani Soto RN Unavailable [phone] Reason for Visit * Reason Comments Unsuccessful Phone Call 2 Encounter Details Date Type Department Care Team (Late st Contact Info) Description 08/26/2025 SHOP/CHAP Initial Outreach Stay Healthy Outpatient Program [address] [facility] Mailstop [phone] [place] [address] Leilani Soto, RN [address] [facility] [address] [place] [address] Social History Tobacco Use Types Packs/Day Years [...] on file 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 Gender Identity Female 11/02/2020 12:59 PM HEATING OPERATORS ENGINEER Sexual Orientation Straight 11/02/2020 12 :59 PM HEATING OPERATORS ENGINEER documented as of this encounter Plan of [...] documented as of this encounter Care Teams Foreclosure Clerk Relationship Specialty Start Date End Date Sacha Deivne MD PCP - General Family Practice 01/27/22 Jovan Eddy MD Consulting Physician Nephrology 10/30/20 Leatha Epstein MD [address] [address] Consulting Physician Gastroenterology 09/05/23 Gonzales Hudson MD [address] [facility] [address] [place] [address] Referring Physician Cardiology 01/23/24 Leilani Soto RN [address] [facility] [address] [place] [address] SHOP Outpatient Floor Framer 08/25/25 documented as of this encounter
--- OUTSIDE RECORDS SUMMARY | 2025-08-26 13:47 | XMS_ITS | Encounter Summary ---
Author Organization [facility] Address [address] [place] [address] Care Team Providers Care Para Machine Operator Name Role Phone Jovan Eddy MD Unavailable [phone] Sacha Devine MD Primary Care Provider [phone] Leatha Epstein MD Unavailable [phone] Gonzales Hudson MD Unavailable [phone] Leilani Soto RN Unavailable Reason for Visit * Reason Comments Chart Review Encounter Details Date Type Department Care Team (Late st Contact Info) Description 08/25/2025 SHOP/CHAP Initial Eligibility Review [facility] [address] [phone] [place] [address] Leilani Soto, RN [address] [facility] [address] [place] [address] Social History Tobacco Use Types Packs/Day Years [...] on file 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 Gender Identity Female 11/02/2020 12:59 PM INSTRUCTOR PAINTING Sexual Orientation Straight 11/02/2020 12 :59 PM INSTRUCTOR PAINTING documented as of this encounter Plan of [...] documented as of this encounter Care Teams Para Machine Operator Relationship Specialty Start Date End Date Sacha Devine MD PCP - General Family Practice 01/27/22 Jovan Eddy MD Consulting Physician Nephrology 10/30/20 Leatha Epstein MD [address] [address] Consulting Physician Gastroenterology 09/05/23 Gonzales Hudson MD [address] [facility] [address] [place] [address] Referring Physician Cardiology 01/23/24 Leilani Soto RN [address] [facility] [address] [place] [address] SHOP Outpatient Evaluation Assistant 08/25/25 documented as of this encounter
== END 2025-08-26 11:24 | disposition home or self-care (01) ==
PROVIDERS: PCP Family Medicine; Visit Provider Family Medicine
DX: N18.31 Chronic kidney disease, stage 3a (principal); R10.9 Unspecified abdominal pain
CPT/HCPCS: 36415; 74177; 80048; 83690; 85025; Q9967